=== PATIENT | male | born 1960 | race Two or more races ===

== ENCOUNTER 2021-07-09 08:23 | Emergency (ER) | payer MEDICAID ==
[~2021-07-09] VITALS: Ht 175.3 cm; Wt 90.7 kg
[~2021-07-09 08:23] MED LIST: ALB5IS NEB; ASPI81CH43 PO; BUSP5TAB51 PO; CAR125T PO; FURO1TAB33 PO; FURO40TA4 PO; GEMF-19 PO; IPR002IS NEB; LISI2.5T47 PO; METF-370 PO; POTA-220 PO; QUET1TAB11 PO; QUET50TA PO; SERT50TA19 PO; SIMV-8 PO; WARF-196 PO; [UNRECOGNIZED DRUG - CODE] PO; [UNRECOGNIZED DRUG - CODE] PO
[2021-07-09 08:32] VITALS: BP 157/107
== END 2021-07-09 09:15 | disposition home or self-care (01) ==
LOC: ER 08:23
DX: I83.93 Asymptomatic varicose veins of bilateral lower extremities (principal); I25.10 Atherosclerotic heart disease of native coronary artery without angina pectoris; I10 Essential (primary) hypertension; I25.2 Old myocardial infarction; E78.5 Hyperlipidemia, unspecified; Z90.49 Acquired absence of other specified parts of digestive tract; Z90.89 Acquired absence of other organs; Z79.82 Long term (current) use of aspirin; Z79.899 Other long term (current) drug therapy; Z79.01 Long term (current) use of anticoagulants; Z88.8 Allergy status to other drugs, medicaments and biological substances

== ENCOUNTER 2021-07-14 10:21 | Inpatient (IN) | payer MEDICAID ==
[~2021-07-14] VITALS: Ht 175.3 cm; Wt 96.0 kg
[2021-07-14] MEDS ORDERED: cefTRIAXone 1GM/50ML D5W 50 ML IV ONE (10:45)
[2021-07-14] MEDS ORDERED: metroNIDAZOLE 500MG/100ML 100 ML IV ONE (10:45)
[2021-07-14] MEDS ORDERED: ONDANSETRON HCL 4 MG/2 ML VIAL IV ONE (10:45)
[2021-07-14] MEDS ORDERED: MORPHINE SULFATE 4 MG/ML SYR/VIAL IV ONE (10:45)
[2021-07-14 11:44] LABS: Basophils # (auto) 0 10 ^3/uL (0-0.2); Basophils % (auto) 0.5 % (0.0-2.0); Eosinophils # (auto) 0 10 ^3/uL (0-0.8); Eosinophils % (auto) 0.4 % (0.0-7.0); Hematocrit 42.9 % (41.0-53.0); Hemoglobin 14.3 g/dL (13.5-17.5); Lymphocytes # (auto) 1.3 10 ^3/uL (0.4-5.4); Lymphocytes % (auto) 23.1 % (10.0-50.0); Mean Corpuscular Hemoglobin 32.3 pg (28.0-32.0); Mean Corpuscular Hgb Conc. 33.4 g/dL (32.0-36.0); Mean Corpuscular Volume 96.6 fL (80.0-100.0); Monocytes # (auto) 0.5 10 ^3/uL (0-1.3); Monocytes % (auto) 7.9 % (0.0-12.0); Neutrophils # (auto) 3.9 10 ^3/uL (1.6-8.6); Neutrophils % (auto) 68.1 % (37.0-80.0); Nucleated Red Blood Cells % 0.1 %; Red Blood Cells 4.44 10^6/uL (4.5-5.90); Red Cell Distribution Width 13.9 % (11.8-14.3); White Blood Cell 5.7 10^3/uL (4.4-10.8)
[2021-07-14 11:56] LABS: Partial Thromboplastin Time 41.6 sec (23.6-33.0)
[2021-07-14 11:57] LABS: Albumin 3.2 g/dL (3.4-5.0); Anion Gap 6 (5-15); Blood Urea Nitrogen 24 mg/dL (7-18); Calcium 8.5 mg/dL (8.5-10.1); Carbon Dioxide 23 mmol/L (21-32); Chloride 108 mmol/L (98-107); Glucose 97 mg/dL (74-106); Potassium 4.3 mmol/L (3.5-5.1); Sodium 137 mmol/L (136-145)
[2021-07-14 12:02] LABS: Alanine Aminotransferase 33 U/L (16-61); Alkaline Phosphatase 137 U/L (45-117); Aspartate Aminotransferase 55 U/L (15-37); Bilirubin, Total 2.7 mg/dL (0.2-1.0); GFR African American 69 mL/min; GFR Non-African American 57 mL/min; Total Protein 6.6 g/dL (6.4-8.2)
[2021-07-14 12:03] LABS: BUN/Creatinine Ratio 17.9
[2021-07-14 12:08] LABS: INR 7.27 (0.9-1.15)
[2021-07-14] MEDS ORDERED: phytonadione 10 MG in SODIUM CHL 0.9% 50 ML IV ONE (12:45)
[2021-07-14] MEDS ORDERED: ETOMIDATE (2MG/ML) 20ML VIAL IV ONE (16:00)
[2021-07-14] MEDS ORDERED: MIDAZOLAM DRIP 50 mg/50mL 50 ML IV SCH (16:00)
[2021-07-14] MEDS ORDERED: fentaNYL Drip 2500mCg/250mlNS 250 ML IV SCH (16:00)
[2021-07-14 16:18] LABS: Urine Bacteria FEW /hpf (None Seen); Urine Blood Negative /uL (Negative); Urine Hyaline Cast FEW /lpf (0 - 2); Urine Mucus FEW (None Seen); Urine Specific Gravity 1.026 (1.001-1.035); Urine WBC 1 /hpf (0 - 3)
[2021-07-14] MEDS ORDERED: NITROGLYCERIN 0.4 MG SL TAB SL PRN (16:30)
[2021-07-14] MEDS ORDERED: HYDROcodone-ACET 5/325MG TAB PO PRN (16:30)
[2021-07-14] MEDS ORDERED: DOCUSATE SOD 100 MG CAP PO PRN (16:30)
[2021-07-14] MEDS ORDERED: MORPHINE SULFATE INJECTION 2 MG/ML SYRG IV PRN (16:30)
[2021-07-14] MEDS ORDERED: ACETAMINOPHEN 325 MG TAB PO PRN (16:30)
[2021-07-14] MEDS ORDERED: ONDANSETRON HCL 4 MG/2 ML VIAL IV PRN (16:30)
[2021-07-14 22:00] VITALS: BP 148/99
[2021-07-14 22:20] VITALS: BP 142/99
[2021-07-15 05:00] VITALS: BP 114/70
[2021-07-15] MEDS ORDERED: LISI20TA28 PO (05:17)
[2021-07-15] MEDS ORDERED: CIPR500T4 PO (05:17)
[2021-07-15] MEDS ORDERED: POLY33504 PO (05:17)
[2021-07-15] MEDS ORDERED: FURO1TAB31 PO (05:17)
[2021-07-15] MEDS ORDERED: METR500T14 PO (05:17)
[2021-07-15] MEDS ORDERED: ONDA-144 PO (05:17)
[2021-07-15] MEDS ORDERED: PANT40TA2 PO (05:17)
[2021-07-15] MEDS ORDERED: ROSU10TA16 PO (05:17)
[2021-07-15] MEDS ORDERED: APIX5TAB PO (05:18)
[2021-07-15 08:56] VITALS: BP 125/84
[2021-07-15 10:10] LABS: Basophils # (auto) 0 10 ^3/uL (0-0.2); Basophils % (auto) 0.6 % (0.0-2.0); Eosinophils # (auto) 0.1 10 ^3/uL (0-0.8); Hematocrit 43.6 % (41.0-53.0); Hemoglobin 14.7 g/dL (13.5-17.5); Lymphocytes # (auto) 1.6 10 ^3/uL (0.4-5.4); Lymphocytes % (auto) 26.8 % (10.0-50.0); Mean Corpuscular Hemoglobin 32.7 pg (28.0-32.0); Mean Corpuscular Hgb Conc. 33.6 g/dL (32.0-36.0); Mean Corpuscular Volume 97.2 fL (80.0-100.0); Monocytes # (auto) 0.5 10 ^3/uL (0-1.3); Neutrophils # (auto) 3.7 10 ^3/uL (1.6-8.6); Neutrophils % (auto) 62.6 % (37.0-80.0); Red Blood Cells 4.48 10^6/uL (4.5-5.90); Red Cell Distribution Width 14.4 % (11.8-14.3); White Blood Cell 5.9 10^3/uL (4.4-10.8)
[2021-07-15 10:15] LABS: BUN/Creatinine Ratio 17.8; Calcium 8.5 mg/dL (8.5-10.1); Potassium 3.9 mmol/L (3.5-5.1)
[2021-07-15 10:30] LABS: INR 1.44 (0.9-1.15); Partial Thromboplastin Time 27.7 sec (23.6-33.0)
[2021-07-15] MEDS ORDERED: LACTULOSE 20Gm/30ML SOLN PO PRN (10:45)
== END 2021-07-15 19:52 | disposition home or self-care (01) | DRG 251 ==
LOC: ER 10:21 → TELE 16:21 → TELE-CENTR 20:57
PROVIDERS: ADMIT Internal Medicine; ATTEND Internal Medicine
DX: R10.9 Unspecified abdominal pain (principal); I50.9 Heart failure, unspecified; K74.60 Unspecified cirrhosis of liver; I11.0 Hypertensive heart disease with heart failure; E78.5 Hyperlipidemia, unspecified; R79.1 Abnormal coagulation profile; Z20.822 Contact with and (suspected) exposure to COVID-19; I25.10 Atherosclerotic heart disease of native coronary artery without angina pectoris; I25.2 Old myocardial infarction; Z80.0 Family history of malignant neoplasm of digestive organs; Z80.3 Family history of malignant neoplasm of breast; Z83.3 Family history of diabetes mellitus
CPT/HCPCS: 36415; 71045; 74176; 76705; 76942; 80048; 80053; 81001; 83605; 83986; 84484; 85025; 85610; 85730; 87040; 87205; 87426; 89051; 96365; 96367; 96368; 96375; G0378; J0696; J2405; J3430; J3490

== ENCOUNTER 2021-08-21 12:06 | Emergency (ER) | payer MEDICAID ==
[~2021-08-21] VITALS: Ht 175.3 cm; Wt 81.6 kg
[~2021-08-21 12:06] MED LIST changes: +APIX5TAB PO; -FURO1TAB33 PO; -LISI2.5T47 PO; +LISI20TA28 PO; +ONDA-144 PO; +PANT40TA2 PO; +POLY33504 PO; -QUET1TAB11 PO; -QUET50TA PO; +ROSU10TA16 PO; -WARF-196 PO; -[UNRECOGNIZED DRUG - CODE] PO; -[UNRECOGNIZED DRUG - CODE] PO
[2021-08-21 16:08] VITALS: BP 126/70
[2021-08-21] MEDS ORDERED: HYDROcodone-ACET 5/325MG TAB PO ONE (16:15)
[2021-08-21] MEDS ORDERED: ONDANSETRON ODT 4 MG TAB PO ONE (16:15)
== END 2021-08-21 16:50 | disposition home or self-care (01) ==
LOC: ER 12:06
DX: S16.1XXA Strain of muscle, fascia and tendon at neck level, initial encounter (principal); E78.5 Hyperlipidemia, unspecified; I10 Essential (primary) hypertension; F12.10 Cannabis abuse, uncomplicated; W18.09XA Striking against other object with subsequent fall, initial encounter; Y93.89 Activity, other specified; Y92.89 Other specified places as the place of occurrence of the external cause; Y99.8 Other external cause status
CPT/HCPCS: 72125; 99284; Q0162

== ENCOUNTER 2022-07-01 16:18 | Inpatient (IN) | payer MEDICAID ==
[~2022-07-01] VITALS: Ht 175.3 cm; Wt 96.3 kg
[2022-07-01 18:38] LABS: Basophils # (auto) 0.1 10 ^3/uL (0-0.2); Basophils % (auto) 0.7 % (0.0-2.0); Eosinophils # (auto) 0.2 10 ^3/uL (0-0.8); Eosinophils % (auto) 2.8 % (0.0-7.0); Hematocrit 43.4 % (41.0-53.0); Hemoglobin 14.9 g/dL (13.5-17.5); Lymphocytes # (auto) 1.7 10 ^3/uL (0.4-5.4); Lymphocytes % (auto) 22.5 % (10.0-50.0); Mean Corpuscular Hemoglobin 31.6 pg (28.0-32.0); Mean Corpuscular Hgb Conc. 34.2 g/dL (32.0-36.0); Mean Corpuscular Volume 92.2 fL (80.0-100.0); Monocytes # (auto) 0.4 10 ^3/uL (0-1.3); Monocytes % (auto) 5.2 % (0.0-12.0); Neutrophils # (auto) 5.3 10 ^3/uL (1.6-8.6); Neutrophils % (auto) 68.8 % (37.0-80.0); Nucleated Red Blood Cells % 0.1 %; Red Blood Cells 4.71 10^6/uL (4.5-5.90); Red Cell Distribution Width 13.5 % (11.8-14.3); White Blood Cell 7.6 10^3/uL (4.4-10.8)
[2022-07-01 18:57] LABS: Albumin 4.2 g/dL (3.4-5.0); BUN/Creatinine Ratio 15.6; Calcium 9.6 mg/dL (8.5-10.1); Potassium 4.2 mmol/L (3.5-5.1)
[2022-07-01 19:10] LABS: Bilirubin, Total 1.4 mg/dL (0.2-1.0); Total Protein 7.1 g/dL (6.4-8.2)
[2022-07-01] MEDS ORDERED: VANCOMYCIN PER PHARMACY 0 MG IV SCH (20:15)
[2022-07-01] MEDS ORDERED: cefTRIAXone 1GM/50ML D5W 50 ML IV ONE (20:15)
[2022-07-01] MEDS ORDERED: SODIUM CHLORIDE 0.9% 1,000 ML IV ONE (20:15)
[2022-07-01 20:37] LABS: Urine Bacteria FEW /hpf (None Seen); Urine Blood Negative /uL (Negative); Urine Hyaline Cast MOD /lpf (0 - 2); Urine Specific Gravity 1.017 (1.001-1.035); Urine WBC 1 /hpf (0 - 3)
[2022-07-01] MEDS ORDERED: VANCOMYCIN 1GM/250ML 250 ML IV ONE (20:45)
[2022-07-01] MEDS ORDERED: ONDANSETRON HCL 4 MG/2 ML VIAL IV PRN (23:15)
[2022-07-01] MEDS ORDERED: ACETAMINOPHEN 325 MG TAB PO PRN (23:15)
[2022-07-02] MEDS ORDERED: PANTOPRAZOLE 40 MG/10 ML VIAL INJ IV ONE (00:15)
[2022-07-02] MEDS ORDERED: DEXTROSE (50%) 50ML SYRG IV PRN (00:15)
[2022-07-02 05:54] LABS: Basophils # (auto) 0 10 ^3/uL (0-0.2); Basophils % (auto) 0.6 % (0.0-2.0); Eosinophils # (auto) 0.3 10 ^3/uL (0-0.8); Eosinophils % (auto) 3.6 % (0.0-7.0); Hematocrit 39.6 % (41.0-53.0); Hemoglobin 13.4 g/dL (13.5-17.5); Lymphocytes # (auto) 1.5 10 ^3/uL (0.4-5.4); Lymphocytes % (auto) 19.5 % (10.0-50.0); Mean Corpuscular Hemoglobin 31.1 pg (28.0-32.0); Mean Corpuscular Hgb Conc. 33.9 g/dL (32.0-36.0); Mean Corpuscular Volume 91.8 fL (80.0-100.0); Monocytes # (auto) 0.5 10 ^3/uL (0-1.3); Monocytes % (auto) 6.7 % (0.0-12.0); Neutrophils # (auto) 5.2 10 ^3/uL (1.6-8.6); Neutrophils % (auto) 69.6 % (37.0-80.0); Red Blood Cells 4.32 10^6/uL (4.5-5.90); Red Cell Distribution Width 13.5 % (11.8-14.3); White Blood Cell 7.5 10^3/uL (4.4-10.8)
[2022-07-02 06:11] LABS: Albumin 3.2 g/dL (3.4-5.0); BUN/Creatinine Ratio 16.3; Calcium 8.2 mg/dL (8.5-10.1); Potassium 3.8 mmol/L (3.5-5.1)
[2022-07-02 06:14] LABS: Bilirubin, Total 0.9 mg/dL (0.2-1.0); Total Protein 6.1 g/dL (6.4-8.2)
[2022-07-02] MEDS: IPRATROPIUM BROM 0.5 MG/2.5ML INH SOL NEB SCH ×3 (06:14→18:59)
[2022-07-02] MEDS: InsuLIN REG 1unit/0.01ml Soln (100units/ml) SC SCH ×4 (07:00→22:00)
[2022-07-02] MEDS: ACCU-CHEK COMFORT CURVE STRIP VI SCH ×4 (07:04→23:01)
[2022-07-02] MEDS: cefTRIAXone 1GM/50ML D5W 50 ML IV SCH (09:59)
[2022-07-02] MEDS ORDERED: VANCOMYCIN 1GM/250ML 250 ML IV SCH (10:00)
[2022-07-02] MEDS: PANTOPRAZOLE 40 MG/10 ML VIAL INJ IV SCH (10:09)
[2022-07-02] MEDS: CARVEDILOL 12.5 MG TAB PO SCH ×3 (10:11→10:26)
[2022-07-02] MEDS: FUROSEMIDE 40 MG TAB PO SCH (10:11)
[2022-07-02] MEDS: ASPirin 81 mg TAB PO SCH (10:12)
[2022-07-02] MEDS: APIXABAN 5 MG TAB PO SCH ×2 (10:12→21:32)
[2022-07-02] MEDS: LISINOPRIL 20 MG TAB PO SCH ×2 (10:12→10:24)
[2022-07-02] MEDS: VANCOMYCIN 1GM/250ML 250 ML IV SCH ×2 (11:34→20:12)
[2022-07-02 14:40] VITALS: BP 95/56
[2022-07-02 17:00] VITALS: BP 168/67
[2022-07-02] MEDS ORDERED: HYDR-4798 PO (21:37)
[2022-07-02 22:00] VITALS: BP 106/50
[2022-07-02] MEDS ORDERED: HYDROcodone-ACET 5/325MG TAB PO PRN (23:00)
[2022-07-03] MEDS ORDERED: AMBR10TA4 PO (02:04)
[2022-07-03] MEDS ORDERED: SILD25TA15 PO (02:07)
[2022-07-03 05:00] VITALS: BP 96/48
[2022-07-03] MEDS: IPRATROPIUM BROM 0.5 MG/2.5ML INH SOL NEB SCH ×3 (05:54→17:49)
[2022-07-03 06:18] LABS: Basophils # (auto) 0.1 10 ^3/uL (0-0.2); Basophils % (auto) 0.8 % (0.0-2.0); Eosinophils # (auto) 0.3 10 ^3/uL (0-0.8); Eosinophils % (auto) 4.3 % (0.0-7.0); Hematocrit 40.9 % (41.0-53.0); Lymphocytes # (auto) 1.9 10 ^3/uL (0.4-5.4); Lymphocytes % (auto) 26.7 % (10.0-50.0); Mean Corpuscular Hemoglobin 31.5 pg (28.0-32.0); Mean Corpuscular Hgb Conc. 34.3 g/dL (32.0-36.0); Mean Corpuscular Volume 91.9 fL (80.0-100.0); Monocytes # (auto) 0.6 10 ^3/uL (0-1.3); Monocytes % (auto) 8.3 % (0.0-12.0); Neutrophils # (auto) 4.4 10 ^3/uL (1.6-8.6); Neutrophils % (auto) 59.9 % (37.0-80.0); Red Blood Cells 4.45 10^6/uL (4.5-5.90); Red Cell Distribution Width 13.5 % (11.8-14.3); White Blood Cell 7.3 10^3/uL (4.4-10.8)
[2022-07-03] MEDS: ACCU-CHEK COMFORT CURVE STRIP VI SCH ×4 (06:41→21:31)
[2022-07-03] MEDS: InsuLIN REG 1unit/0.01ml Soln (100units/ml) SC SCH ×4 (06:42→22:00)
[2022-07-03] MEDS: VANCOMYCIN 1GM/250ML 250 ML IV SCH (08:14)
[2022-07-03 09:00] VITALS: BP 112/59
[2022-07-03] MEDS: PANTOPRAZOLE 40 MG/10 ML VIAL INJ IV SCH (09:58)
[2022-07-03] MEDS: ASPirin 81 mg TAB PO SCH (09:58)
[2022-07-03] MEDS: FUROSEMIDE 40 MG TAB PO SCH (10:03)
[2022-07-03] MEDS: APIXABAN 5 MG TAB PO SCH ×2 (10:05→21:30)
[2022-07-03] MEDS: CARVEDILOL 12.5 MG TAB PO SCH ×4 (10:05→21:31)
[2022-07-03] MEDS: cefTRIAXone 1GM/50ML D5W 50 ML IV SCH (10:07)
[2022-07-03 12:31] VITALS: BP 125/68
[2022-07-03 17:00] VITALS: BP 130/82
[2022-07-03 22:00] VITALS: BP 116/71
[2022-07-03] MEDS ORDERED: DOXYCYCLINE 100MG/250ML 250 ML IV ONE (22:15)
[2022-07-04 05:00] VITALS: BP 118/74
[2022-07-04] MEDS: ACCU-CHEK COMFORT CURVE STRIP VI SCH ×2 (05:48→12:12)
[2022-07-04] MEDS: InsuLIN REG 1unit/0.01ml Soln (100units/ml) SC SCH ×2 (05:48→11:30)
[2022-07-04] MEDS: IPRATROPIUM BROM 0.5 MG/2.5ML INH SOL NEB SCH ×2 (06:42→11:17)
[2022-07-04 08:51] VITALS: BP 148/97
[2022-07-04] MEDS: cefTRIAXone 1GM/50ML D5W 50 ML IV SCH (09:06)
[2022-07-04] MEDS ORDERED: DOXYCYCLINE 100MG/250ML 250 ML IV SCH (10:00)
[2022-07-04] MEDS ORDERED: DOXY-332 PO (10:17)
[2022-07-04] MEDS: PANTOPRAZOLE 40 MG/10 ML VIAL INJ IV SCH (10:44)
[2022-07-04] MEDS: ASPirin 81 mg TAB PO SCH (10:44)
[2022-07-04] MEDS: FUROSEMIDE 40 MG TAB PO SCH (10:46)
[2022-07-04] MEDS: CARVEDILOL 12.5 MG TAB PO SCH (10:46)
[2022-07-04] MEDS: LISINOPRIL 20 MG TAB PO SCH (10:47)
[2022-07-04] MEDS: APIXABAN 5 MG TAB PO SCH (10:48)
[2022-07-04 13:00] VITALS: BP 100/52
[2022-07-04 14:41] VITALS: BP 100/52
== END 2022-07-04 15:55 | disposition home or self-care (01) | DRG 383 ==
LOC: ER 16:18 → OVERFLOW 23:22 → CENTRAL 07-02 13:54
PROVIDERS: ADMIT Nurse Practitioner Family; ATTEND Internal Medicine Pulmonary Disease
DX: L03.115 Cellulitis of right lower limb (principal); E78.5 Hyperlipidemia, unspecified; I12.9 Hypertensive chronic kidney disease with stage 1 through stage 4 chronic kidney disease, or unspecified chronic kidney disease; N18.31 Chronic kidney disease, stage 3a; Z20.822 Contact with and (suspected) exposure to COVID-19; R73.9 Hyperglycemia, unspecified; I25.10 Atherosclerotic heart disease of native coronary artery without angina pectoris; J44.9 Chronic obstructive pulmonary disease, unspecified; Z79.01 Long term (current) use of anticoagulants; Z79.82 Long term (current) use of aspirin; Z79.84 Long term (current) use of oral hypoglycemic drugs; Z79.899 Other long term (current) drug therapy; Z80.3 Family history of malignant neoplasm of breast; Z83.3 Family history of diabetes mellitus; Z86.718 Personal history of other venous thrombosis and embolism; I25.2 Old myocardial infarction
CPT/HCPCS: 36415; 73700; 80053; 80202; 81001; 82565; 82962; 83036; 84484; 85025; 93971; 94640; 96365; 96368; C9113; G0378; J0696; J3490

== ENCOUNTER 2022-10-24 11:22 | Inpatient (IN) | payer MEDICAID ==
[~2022-10-24] VITALS: Ht 175.3 cm; Wt 92.1 kg
[~2022-10-24 11:22] MED LIST changes: +AMBR10TA4 PO; +DOXY-332 PO; +HYDR-4798 PO; +SILD25TA15 PO
[2022-10-24] MEDS ORDERED: VANCOMYCIN 1GM/250ML 250 ML IV ONE (15:30)
[2022-10-24 15:48] LABS: Basophils # (auto) 0 10 ^3/uL (0-0.2); Basophils % (auto) 0.4 % (0.0-2.0); Eosinophils # (auto) 0 10 ^3/uL (0-0.8); Eosinophils % (auto) 0.3 % (0.0-7.0); Hematocrit 45.1 % (41.0-53.0); Hemoglobin 15.4 g/dL (13.5-17.5); Lymphocytes # (auto) 1.4 10 ^3/uL (0.4-5.4); Lymphocytes % (auto) 15.6 % (10.0-50.0); Mean Corpuscular Hemoglobin 31.2 pg (28.0-32.0); Mean Corpuscular Hgb Conc. 34.2 g/dL (32.0-36.0); Mean Corpuscular Volume 91.3 fL (80.0-100.0); Monocytes # (auto) 0.5 10 ^3/uL (0-1.3); Monocytes % (auto) 6.1 % (0.0-12.0); Neutrophils # (auto) 6.9 10 ^3/uL (1.6-8.6); Neutrophils % (auto) 77.6 % (37.0-80.0); Red Blood Cells 4.94 10^6/uL (4.5-5.90); Red Cell Distribution Width 12.8 % (11.8-14.3); White Blood Cell 8.8 10^3/uL (4.4-10.8)
[2022-10-24 16:05] LABS: Albumin 4.1 g/dL (3.4-5.0); Calcium 8.6 mg/dL (8.5-10.1); Potassium 3.4 mmol/L (3.5-5.1)
[2022-10-24 16:08] LABS: BUN/Creatinine Ratio 14.6; Bilirubin, Total 1.8 mg/dL (0.2-1.0); Total Protein 7.4 g/dL (6.4-8.2)
[2022-10-24] MEDS ORDERED: DEXTROSE (50%) 50ML SYRG IV PRN (17:15)
[2022-10-24] MEDS ORDERED: POTASSIUM CHL 20 Meq TABLET PO ONE (17:15)
[2022-10-24] MEDS ORDERED: ACETAMINOPHEN 325 MG TAB PO PRN (17:15)
[2022-10-24] MEDS ORDERED: VANCOMYCIN PER PHARMACY 0 MG IV SCH (17:15)
[2022-10-24] MEDS ORDERED: ALBUTEROL MEDNEB 2.5 mg/3ml NEB NEB PRN (17:30)
[2022-10-24 17:49] VITALS: BP 107/59
[2022-10-24] MEDS: ACCU-CHEK COMFORT CURVE STRIP VI SCH (23:50)
[2022-10-24] MEDS: InsuLIN REG 1unit/0.01ml Soln (100units/ml) SC SCH (23:51)
[2022-10-25] MEDS: APIXABAN 5 MG TAB PO SCH ×3 (00:22→21:08)
[2022-10-25] MEDS: SILDENAFIL CITRATE 20 MG TAB PO SCH ×4 (00:22→21:07)
[2022-10-25 06:44] LABS: Albumin 3.3 g/dL (3.4-5.0); Basophils # (auto) 0 10 ^3/uL (0-0.2); Basophils % (auto) 0.5 % (0.0-2.0); Calcium 8.4 mg/dL (8.5-10.1); Eosinophils # (auto) 0.1 10 ^3/uL (0-0.8); Eosinophils % (auto) 1.9 % (0.0-7.0); Hematocrit 43.9 % (41.0-53.0); Lymphocytes # (auto) 1.6 10 ^3/uL (0.4-5.4); Lymphocytes % (auto) 26.7 % (10.0-50.0); Mean Corpuscular Hemoglobin 31.4 pg (28.0-32.0); Mean Corpuscular Hgb Conc. 34.2 g/dL (32.0-36.0); Mean Corpuscular Volume 91.8 fL (80.0-100.0); Monocytes # (auto) 0.7 10 ^3/uL (0-1.3); Monocytes % (auto) 11.9 % (0.0-12.0); Neutrophils # (auto) 3.6 10 ^3/uL (1.6-8.6); Nucleated Red Blood Cells % 0.1 %; Potassium 3.8 mmol/L (3.5-5.1); Red Blood Cells 4.78 10^6/uL (4.5-5.90); Red Cell Distribution Width 13.2 % (11.8-14.3); White Blood Cell 6.1 10^3/uL (4.4-10.8)
[2022-10-25] MEDS: InsuLIN REG 1unit/0.01ml Soln (100units/ml) SC SCH ×4 (06:47→21:05)
[2022-10-25] MEDS: ACCU-CHEK COMFORT CURVE STRIP VI SCH ×4 (06:47→21:09)
[2022-10-25 06:48] LABS: BUN/Creatinine Ratio 16.4; Total Protein 6.5 g/dL (6.4-8.2)
[2022-10-25 08:00] VITALS: BP 142/80
[2022-10-25] MEDS: VANCOMYCIN 1GM/250ML 250 ML IV SCH (09:23)
[2022-10-25] MEDS ORDERED: Ambrisentan 10 MG PO SCH (10:00)
[2022-10-25] MEDS: ASPirin 81 mg TAB PO SCH (10:28)
[2022-10-25] MEDS: PANTOPRAZOLE 40 MG TAB PO SCH (10:28)
[2022-10-25] MEDS: ATORVASTATIN 20 MG TAB PO SCH (10:28)
[2022-10-25] MEDS: SERTRALINE HCL 50 MG TAB PO SCH (10:29)
[2022-10-25 11:40] VITALS: BP 142/80
[2022-10-25] MEDS ORDERED: cefTRIAXone 1GM/50ML D5W 50 ML IV ONE (15:45)
[2022-10-25 16:00] VITALS: BP 147/74
[2022-10-25] MEDS: FUROSEMIDE 20 MG/2 ML VIAL IV SCH (17:20)
[2022-10-25] MEDS: TREPROSTINIL PO SCH ×2 (18:30→22:08)
[2022-10-25 20:00] VITALS: BP 120/66
[2022-10-25] MEDS: POTASSIUM CHL 10 Meq TABLET PO SCH (21:08)
[2022-10-25 22:00] VITALS: BP 120/66
[2022-10-25] MEDS ORDERED: PATIENTS OWN MEDICATION PO SCH (22:00)
[2022-10-26] MEDS: TREPROSTINIL PO SCH ×4 (01:13→15:09)
[2022-10-26 05:00] VITALS: BP 107/54
[2022-10-26] MEDS: FUROSEMIDE 20 MG/2 ML VIAL IV SCH (06:00)
[2022-10-26] MEDS: SILDENAFIL CITRATE 20 MG TAB PO SCH ×2 (06:00→16:02)
[2022-10-26] MEDS: InsuLIN REG 1unit/0.01ml Soln (100units/ml) SC SCH ×2 (06:29→11:30)
[2022-10-26] MEDS: ACCU-CHEK COMFORT CURVE STRIP VI SCH ×2 (06:30→12:03)
[2022-10-26 08:00] VITALS: BP 111/61
[2022-10-26] MEDS ORDERED: cefTRIAXone 1GM/50ML D5W 50 ML IV SCH (09:00)
[2022-10-26 09:11] VITALS: BP 111/61
[2022-10-26] MEDS: POTASSIUM CHL 10 Meq TABLET PO SCH (09:28)
[2022-10-26] MEDS: SERTRALINE HCL 50 MG TAB PO SCH (09:28)
[2022-10-26] MEDS: APIXABAN 5 MG TAB PO SCH (09:29)
[2022-10-26] MEDS: ATORVASTATIN 20 MG TAB PO SCH (09:29)
[2022-10-26] MEDS: ASPirin 81 mg TAB PO SCH (09:30)
[2022-10-26] MEDS: PANTOPRAZOLE 40 MG TAB PO SCH (09:32)
[2022-10-26] MEDS ORDERED: AMBRISENTAN 10 MG PO SCH (10:00)
[2022-10-26 10:33] LABS: Basophils # (auto) 0 10 ^3/uL (0-0.2); Basophils % (auto) 0.6 % (0.0-2.0); Eosinophils # (auto) 0.2 10 ^3/uL (0-0.8); Eosinophils % (auto) 3.1 % (0.0-7.0); Hemoglobin 15.5 g/dL (13.5-17.5); Lymphocytes # (auto) 1.7 10 ^3/uL (0.4-5.4); Lymphocytes % (auto) 25.9 % (10.0-50.0); Mean Corpuscular Hemoglobin 31.1 pg (28.0-32.0); Mean Corpuscular Hgb Conc. 33.8 g/dL (32.0-36.0); Mean Corpuscular Volume 92.1 fL (80.0-100.0); Monocytes # (auto) 0.6 10 ^3/uL (0-1.3); Monocytes % (auto) 9.4 % (0.0-12.0); Neutrophils # (auto) 3.9 10 ^3/uL (1.6-8.6); Nucleated Red Blood Cells % 0.2 %; Red Blood Cells 4.99 10^6/uL (4.5-5.90); Red Cell Distribution Width 12.9 % (11.8-14.3); White Blood Cell 6.5 10^3/uL (4.4-10.8)
[2022-10-26 10:53] LABS: Albumin 3.5 g/dL (3.4-5.0); BUN/Creatinine Ratio 17.6; Calcium 8.4 mg/dL (8.5-10.1); Potassium 4.2 mmol/L (3.5-5.1)
[2022-10-26 10:56] LABS: Bilirubin, Total 0.8 mg/dL (0.2-1.0); Total Protein 6.5 g/dL (6.4-8.2)
[2022-10-26 11:20] LABS: Hepatitis A Ab IgM Negative; Hepatitis B Core IgM Negative; Hepatitis C Antibody Negative (Negative)
[2022-10-26] MEDS ORDERED: CLIN300C8 PO (12:23)
[2022-10-26 12:55] VITALS: BP 97/55
[2022-10-26 14:32] VITALS: BP 97/55
[2022-10-26] MEDS: VANCOMYCIN 1GM/250ML 250 ML IV SCH ×2 (15:00)
== END 2022-10-26 15:45 | disposition home or self-care (01) | DRG 383 ==
LOC: ER 11:22 → OVERFLOW 17:08 → EAST 10-25 10:49
PROVIDERS: ADMIT Nurse Practitioner Family; ATTEND Hospitalist
DX: L03.116 Cellulitis of left lower limb (principal); I82.432 Acute embolism and thrombosis of left popliteal vein; I27.20 Pulmonary hypertension, unspecified; I50.9 Heart failure, unspecified; I11.0 Hypertensive heart disease with heart failure; E78.5 Hyperlipidemia, unspecified; I25.10 Atherosclerotic heart disease of native coronary artery without angina pectoris; Z20.822 Contact with and (suspected) exposure to COVID-19; I82.503 Chronic embolism and thrombosis of unspecified deep veins of lower extremity, bilateral; K76.9 Liver disease, unspecified; E66.9 Obesity, unspecified; F31.9 Bipolar disorder, unspecified; Z79.01 Long term (current) use of anticoagulants; Z80.3 Family history of malignant neoplasm of breast; Z83.3 Family history of diabetes mellitus; Z68.30 Body mass index [BMI] 30.0-30.9, adult
CPT/HCPCS: 36415; 80053; 80074; 80202; 82962; 83036; 85025; 87426; 93306; 93971; 96365; G0378; J0696

== ENCOUNTER 2023-03-17 10:33 | Emergency (ER) | payer MEDICAID ==
[~2023-03-17] VITALS: Ht 175.3 cm; Wt 91.6 kg
[~2023-03-17 10:33] MED LIST changes: +CLIN300C70 PO; -DOXY-332 PO; -GEMF-19 PO; +GEMF-66 PO; -LISI20TA28 PO; +LISI20TA56 PO; +SERT-206 PO; -SERT50TA19 PO; -SIMV-8 PO; +SIMV20TA20 PO
[2023-03-17 12:23] LABS: Calcium 8.6 mg/dL (8.5-10.1)
[2023-03-17 12:24] LABS: Basophils # (auto) 0 10 ^3/uL (0-0.2); Basophils % (auto) 0.3 % (0.0-2.0); Eosinophils # (auto) 0.1 10 ^3/uL (0-0.8); Eosinophils % (auto) 1.8 % (0.0-7.0); Hematocrit 46.6 % (41.0-53.0); Hemoglobin 16.1 g/dL (13.5-17.5); Lymphocytes # (auto) 1.8 10 ^3/uL (0.4-5.4); Lymphocytes % (auto) 27.5 % (10.0-50.0); Mean Corpuscular Hemoglobin 31.2 pg (28.0-32.0); Mean Corpuscular Hgb Conc. 34.5 g/dL (32.0-36.0); Mean Corpuscular Volume 90.3 fL (80.0-100.0); Monocytes # (auto) 0.5 10 ^3/uL (0-1.3); Monocytes % (auto) 7.3 % (0.0-12.0); Neutrophils # (auto) 4.2 10 ^3/uL (1.6-8.6); Neutrophils % (auto) 63.1 % (37.0-80.0); Nucleated Red Blood Cells % 0.1 %; Red Blood Cells 5.16 10^6/uL (4.5-5.90); Red Cell Distribution Width 13.5 % (11.8-14.3); White Blood Cell 6.6 10^3/uL (4.4-10.8)
[2023-03-17 12:29] LABS: INR 1.07 (0.9-1.15); Partial Thromboplastin Time 30.2 SEC (24.5-34.5)
[2023-03-17 12:34] LABS: Albumin 3.8 g/dL (3.4-5.0); BUN/Creatinine Ratio 15.6 (10.0-20.0); Bilirubin, Total 1.5 mg/dL (0.2-1.0); Total Protein 6.6 g/dL (6.4-8.2)
[2023-03-17 13:50] VITALS: BP 115/62
== END 2023-03-17 13:53 | disposition home or self-care (01) ==
LOC: ER 10:33
DX: R51.9 Headache, unspecified (principal); M54.2 Cervicalgia; M25.551 Pain in right hip; M25.562 Pain in left knee; I13.0 Hypertensive heart and chronic kidney disease with heart failure and stage 1 through stage 4 chronic kidney disease, or unspecified chronic kidney disease; N18.9 Chronic kidney disease, unspecified; I50.9 Heart failure, unspecified; F41.9 Anxiety disorder, unspecified; I25.10 Atherosclerotic heart disease of native coronary artery without angina pectoris; F32.9 Major depressive disorder, single episode, unspecified; E78.5 Hyperlipidemia, unspecified; I25.2 Old myocardial infarction; Z86.718 Personal history of other venous thrombosis and embolism; Z88.7 Allergy status to serum and vaccine; W10.8XXA Fall (on) (from) other stairs and steps, initial encounter; Y93.89 Activity, other specified; Y92.098 Other place in other non-institutional residence as the place of occurrence of the external cause; Y99.8 Other external cause status
CPT/HCPCS: 36415; 70450; 72125; 73562; 74176; 80053; 83880; 84484; 85025; 85610; 85730

== ENCOUNTER 2023-05-23 06:19 | Inpatient (IN) | payer MEDICAID ==
[~2023-05-23] VITALS: Ht 175.3 cm; Wt 94.1 kg
[2023-05-23 07:56] VITALS: O2SAT 98
[2023-05-23 08:36] LABS: Basophils # (auto) 0 10 ^3/uL (0-0.2); Basophils % (auto) 0.3 % (0.0-2.0); Eosinophils # (auto) 0.1 10 ^3/uL (0-0.8); Eosinophils % (auto) 0.4 % (0.0-7.0); Hematocrit 50.6 % (41.0-53.0); Lymphocytes # (auto) 1.8 10 ^3/uL (0.4-5.4); Mean Corpuscular Hgb Conc. 33.6 g/dL (32.0-36.0); Mean Corpuscular Volume 92.1 fL (80.0-100.0); Monocytes # (auto) 0.6 10 ^3/uL (0-1.3); Monocytes % (auto) 5.2 % (0.0-12.0); Neutrophils # (auto) 10.1 10 ^3/uL (1.6-8.6); Neutrophils % (auto) 80.1 % (37.0-80.0); Red Blood Cells 5.49 10^6/uL (4.5-5.90); Red Cell Distribution Width 13.8 % (11.8-14.3); White Blood Cell 12.6 10^3/uL (4.4-10.8)
[2023-05-23 08:49] LABS: INR 1.01 (0.9-1.15); Prothrombin Time 10.6 sec (9.3-11.8)
[2023-05-23 08:50] LABS: Alanine Aminotransferase 22 U/L (7-40); Albumin 4.8 g/dL (3.2-4.8); Alkaline Phosphatase 46 U/L (46-116); Aspartate Aminotransferase 17 U/L (13-40); BUN/Creatinine Ratio 15.3 (10.0-20.0); Bilirubin, Total 1.7 mg/dL (0.2-1.0); Blood Urea Nitrogen 18 mg/dL (9-23); Calcium 9.6 mg/dL (8.5-10.1); Chloride 106 mmol/L (98-107); Glucose 97 mg/dL (74-106); Potassium 3.5 mmol/L (3.5-5.1); Sodium 140 mmol/L (136-145); Total Protein 7.5 g/dL (5.7-8.2)
[2023-05-23] MEDS ORDERED: APIXABAN 5 MG TAB PO SCH ×2 (10:00→22:00)
[2023-05-23] MEDS ORDERED: DOCUSATE SOD 100 MG CAP PO PRN (12:30)
[2023-05-23] MEDS ORDERED: ONDANSETRON HCL 4 MG/2 ML VIAL IV PRN (12:30)
[2023-05-23] MEDS ORDERED: MORPHINE SULFATE INJ 2 MG/ml SYRG IV PRN (12:30)
[2023-05-23] MEDS: SILDENAFIL CITRATE 20 MG TAB PO SCH ×2 (14:43→22:40)
[2023-05-23 16:41] VITALS: PULSE 95; RESP 19; O2SAT 94
[2023-05-23] MEDS ORDERED: ACETAMINOPHEN 325 MG TAB PO ONE (17:00)
[2023-05-23 19:30] VITALS: PULSE 84; RESP 20; O2SAT 92
[2023-05-23] MEDS: SODIUM CHLORIDE 0.9% 1,000 ML IV SCH ×2 (19:55→20:50)
[2023-05-23 20:17] VITALS: BP 109/50; PULSE 95; RESP 19; TEMP 99.8; O2SAT 94
[2023-05-23] MEDS: GEMFIBROZIL 600 MG TAB PO SCH ×2 (22:40→22:53)
[2023-05-23] MEDS: ENOXAPARIN SOD 100 MG/1 ML SYRINGE SC SCH (22:40)
[2023-05-23] MEDS: ATORVASTATIN 20 MG TAB PO SCH (22:41)
[2023-05-23] MEDS: CARVEDILOL 12.5 MG TAB PO SCH (22:52)
[2023-05-24] MEDS: SODIUM CHLORIDE 0.9% 1,000 ML IV SCH ×3 (05:16→22:28)
[2023-05-24] MEDS: SILDENAFIL CITRATE 20 MG TAB PO SCH ×3 (07:01→21:45)
[2023-05-24 08:32] LABS: Basophils # (auto) 0 10 ^3/uL (0-0.2); Basophils % (auto) 0.2 % (0.0-2.0); Eosinophils # (auto) 0 10 ^3/uL (0-0.8); Eosinophils % (auto) 0.1 % (0.0-7.0); Hemoglobin 14.5 g/dL (13.5-17.5); Lymphocytes # (auto) 1.3 10 ^3/uL (0.4-5.4); Lymphocytes % (auto) 15.9 % (10.0-50.0); Mean Corpuscular Hgb Conc. 33.8 g/dL (32.0-36.0); Mean Corpuscular Volume 91.6 fL (80.0-100.0); Monocytes # (auto) 0.5 10 ^3/uL (0-1.3); Monocytes % (auto) 6.3 % (0.0-12.0); Neutrophils # (auto) 6.1 10 ^3/uL (1.6-8.6); Neutrophils % (auto) 77.5 % (37.0-80.0); Red Blood Cells 4.69 10^6/uL (4.5-5.90); Red Cell Distribution Width 13.6 % (11.8-14.3); White Blood Cell 7.9 10^3/uL (4.4-10.8)
[2023-05-24 08:57] LABS: Alanine Aminotransferase 32 U/L (7-40); Albumin 3.7 g/dL (3.2-4.8); Alkaline Phosphatase 42 U/L (46-116); Aspartate Aminotransferase 36 U/L (13-40); BUN/Creatinine Ratio 12.5 (10.0-20.0); Bilirubin, Total 1.9 mg/dL (0.2-1.0); Blood Urea Nitrogen 15 mg/dL (9-23); Calcium 8.2 mg/dL (8.5-10.1); Chloride 108 mmol/L (98-107); Glucose 116 mg/dL (74-106); Potassium 3.8 mmol/L (3.5-5.1); Sodium 137 mmol/L (136-145); Total Protein 5.9 g/dL (5.7-8.2)
[2023-05-24] MEDS: PANTOPRAZOLE 40 MG TAB PO SCH (10:00)
[2023-05-24] MEDS: LISINOPRIL 20 MG TAB PO SCH (10:00)
[2023-05-24] MEDS: SERTRALINE HCL 50 MG TAB PO SCH (10:00)
[2023-05-24] MEDS ORDERED: PATIENTS OWN MEDICATION (Simvastatin 1 TAB) PO SCH (10:00)
[2023-05-24] MEDS: Ambrisentan 10 MG PO SCH (10:00)
[2023-05-24] MEDS: CARVEDILOL 12.5 MG TAB PO SCH ×2 (10:00→21:37)
[2023-05-24] MEDS: GEMFIBROZIL 600 MG TAB PO SCH ×2 (10:00→21:37)
[2023-05-24] MEDS: ASPirin 81 mg TAB PO SCH (10:01)
[2023-05-24] MEDS: FUROSEMIDE 40 MG TAB PO SCH (10:03)
[2023-05-24] MEDS: POTASSIUM CHL 20 Meq TABLET PO SCH (10:04)
[2023-05-24] MEDS: ENOXAPARIN SOD 100 MG/1 ML SYRINGE SC SCH ×2 (10:05→21:36)
[2023-05-24 11:58] LABS: Anion Gap 8.1 (5-15); Carbon Dioxide 20.9 mmol/L (20-30)
[2023-05-24 13:00] VITALS: BP 116/59; PULSE 71; RESP 16; TEMP 98.8; O2SAT 90
[2023-05-24 14:00] VITALS: PULSE 60; RESP 17; O2SAT 92
[2023-05-24] MEDS ORDERED: PATIENTS OWN MEDICATION PO SCH ×2 (14:00)
[2023-05-24 17:00] VITALS: BP 95/41; PULSE 60; RESP 17; TEMP 98.2; O2SAT 92
[2023-05-24] MEDS: TREPROSTINIL 32 MCG IN SCH ×2 (18:00→21:40)
[2023-05-24 20:00] VITALS: PULSE 60; RESP 18
[2023-05-24] MEDS: ATORVASTATIN 20 MG TAB PO SCH (21:37)
[2023-05-24 22:00] VITALS: BP 116/58; PULSE 67; RESP 22; TEMP 98.5; O2SAT 96
[2023-05-24 22:20] VITALS: O2SAT 96
[2023-05-25] MEDS: TREPROSTINIL 32 MCG IN SCH (02:00)
[2023-05-25 05:00] VITALS: BP 91/43; PULSE 58; RESP 17; TEMP 98.2; O2SAT 92
[2023-05-25] MEDS: SILDENAFIL CITRATE 20 MG TAB PO SCH ×3 (05:34→22:02)
[2023-05-25 06:50] VITALS: O2SAT 94
[2023-05-25 08:00] VITALS: BP 97/49; PULSE 55; RESP 22; TEMP 97.7; O2SAT 92
[2023-05-25] MEDS: LISINOPRIL 20 MG TAB PO SCH (10:00)
[2023-05-25] MEDS: FUROSEMIDE 40 MG TAB PO SCH (10:00)
[2023-05-25] MEDS ORDERED: PATIENTS OWN MEDICATION PO SCH (10:00)
[2023-05-25] MEDS: CARVEDILOL 12.5 MG TAB PO SCH ×2 (10:00→22:00)
[2023-05-25] MEDS: SODIUM CHLORIDE 0.9% 1,000 ML IV SCH ×3 (10:21→22:50)
[2023-05-25] MEDS: Ambrisentan 10 MG PO SCH (10:22)
[2023-05-25] MEDS: PANTOPRAZOLE 40 MG TAB PO SCH (10:36)
[2023-05-25] MEDS: SERTRALINE HCL 50 MG TAB PO SCH (10:36)
[2023-05-25] MEDS: GEMFIBROZIL 600 MG TAB PO SCH ×2 (10:36→21:49)
[2023-05-25] MEDS: ASPirin 81 mg TAB PO SCH (10:36)
[2023-05-25] MEDS: POTASSIUM CHL 20 Meq TABLET PO SCH (10:36)
[2023-05-25] MEDS: ENOXAPARIN SOD 100 MG/1 ML SYRINGE SC SCH ×2 (10:37→21:55)
[2023-05-25 12:00] VITALS: BP 124/70; PULSE 57; RESP 20; TEMP 97.3; O2SAT 94
[2023-05-25 12:35] LABS: Urine Bacteria NONE SEEN /hpf (None Seen); Urine Blood Negative /uL (Negative); Urine Clarity Clear (Clear); Urine Color Yellow (Yellow); Urine Protein, UAD Negative (Negative); Urine Specific Gravity 1.015 (1.001-1.035); Urine Urobilinogen Normal (Negative); Urine WBC <1 /hpf (0 - 3); Urine pH 6.5 (5.0-8.0)
[2023-05-25] MEDS ORDERED: FUROSEMIDE 20 MG/2 ML VIAL IV ONE (15:15)
[2023-05-25] MEDS: TREPROSTINIL IN SCH ×3 (15:43→22:00)
[2023-05-25 16:00] VITALS: BP 97/44; PULSE 62; RESP 20; TEMP 98; O2SAT 95
[2023-05-25] MEDS ORDERED: IOHEXOL 350 MG/ML 100ML IJ ONE (16:01)
[2023-05-25] MEDS: ATORVASTATIN 20 MG TAB PO SCH (21:49)
[2023-05-25 22:08] VITALS: BP 93/47; PULSE 55; RESP 17; TEMP 97.9; O2SAT 94
[2023-05-25] MEDS ORDERED: ACETAMINOPHEN 325 MG TAB PO PRN (23:45)
[2023-05-26] MEDS: SODIUM CHLORIDE 0.9% 1,000 ML IV SCH (00:30)
[2023-05-26] MEDS: TREPROSTINIL IN SCH ×3 (02:00→08:46)
[2023-05-26 05:13] VITALS: BP 92/55; PULSE 60; RESP 17; TEMP 99; O2SAT 95
[2023-05-26] MEDS: SILDENAFIL CITRATE 20 MG TAB PO SCH (05:25)
[2023-05-26 08:00] VITALS: BP 108/53; PULSE 69; RESP 20; TEMP 98.6; O2SAT 98
[2023-05-26] MEDS: ASPirin 81 mg TAB PO SCH (08:42)
[2023-05-26] MEDS: PANTOPRAZOLE 40 MG TAB PO SCH (08:43)
[2023-05-26] MEDS: GEMFIBROZIL 600 MG TAB PO SCH (08:43)
[2023-05-26] MEDS: POTASSIUM CHL 20 Meq TABLET PO SCH (08:43)
[2023-05-26] MEDS: CARVEDILOL 12.5 MG TAB PO SCH (08:44)
[2023-05-26] MEDS: FUROSEMIDE 40 MG TAB PO SCH (08:44)
[2023-05-26] MEDS: ENOXAPARIN SOD 100 MG/1 ML SYRINGE SC SCH (08:45)
[2023-05-26] MEDS: SERTRALINE HCL 50 MG TAB PO SCH (08:45)
[2023-05-26] MEDS ORDERED: LISINOPRIL 20 MG TAB PO SCH (10:00)
[2023-05-26 11:03] VITALS: BP 108/53; PULSE 69; RESP 20; TEMP 98.6; O2SAT 98
[2023-05-26 13:00] VITALS: BP 136/65; PULSE 68; RESP 20; TEMP 98.6; O2SAT 98
== END 2023-05-26 12:10 | disposition home or self-care (01) | DRG 197 ==
LOC: ER 06:19 → OVERFLOW 12:29 → WEST WING 05-24 07:31
PROVIDERS: ADMIT Nurse Practitioner Family; ATTEND Family Medicine
DX: I82.401 Acute embolism and thrombosis of unspecified deep veins of right lower extremity (principal); I27.20 Pulmonary hypertension, unspecified; I50.9 Heart failure, unspecified; I11.0 Hypertensive heart disease with heart failure; I82.503 Chronic embolism and thrombosis of unspecified deep veins of lower extremity, bilateral; D72.829 Elevated white blood cell count, unspecified; E78.5 Hyperlipidemia, unspecified; F32.A Depression, unspecified; F41.9 Anxiety disorder, unspecified; E66.9 Obesity, unspecified; I25.10 Atherosclerotic heart disease of native coronary artery without angina pectoris; E78.00 Pure hypercholesterolemia, unspecified; R73.03 Prediabetes; Z79.01 Long term (current) use of anticoagulants; Z80.3 Family history of malignant neoplasm of breast; Z83.3 Family history of diabetes mellitus
CPT/HCPCS: 36415; 71045; 71275; 80053; 81001; 83605; 85025; 85610; 93971; G0378; J2405

== ENCOUNTER 2023-08-15 08:55 | Emergency (ER) | payer MEDICAID ==
[~2023-08-15] VITALS: Ht 175.3 cm; Wt 86.4 kg
[2023-08-15 12:33] VITALS: BP 130/77; PULSE 99; RESP 17; TEMP 99.6; O2SAT 95
== END 2023-08-15 12:53 | disposition home or self-care (01) ==
LOC: ER 08:55
DX: I82.492 Acute embolism and thrombosis of other specified deep vein of left lower extremity (principal); I13.0 Hypertensive heart and chronic kidney disease with heart failure and stage 1 through stage 4 chronic kidney disease, or unspecified chronic kidney disease; N18.9 Chronic kidney disease, unspecified; I50.9 Heart failure, unspecified; E78.5 Hyperlipidemia, unspecified
CPT/HCPCS: 93970

== ENCOUNTER 2023-09-10 21:09 | Emergency (ER) | payer MEDICAID ==
[~2023-09-10] VITALS: Ht 175.3 cm; Wt 90.9 kg
[2023-09-10 22:23] LABS: Basophils # (auto) 0 10 ^3/uL (0-0.2); Basophils % (auto) 0.3 % (0.0-2.0); Eosinophils # (auto) 0.1 10 ^3/uL (0-0.8); Eosinophils % (auto) 0.8 % (0.0-7.0); Hematocrit 44.1 % (41.0-53.0); Hemoglobin 14.8 g/dL (13.5-17.5); Lymphocytes # (auto) 1.7 10 ^3/uL (0.4-5.4); Lymphocytes % (auto) 18.1 % (10.0-50.0); Mean Corpuscular Hemoglobin 31.3 pg (28.0-32.0); Mean Corpuscular Hgb Conc. 33.6 g/dL (32.0-36.0); Mean Corpuscular Volume 93.1 fL (80.0-100.0); Monocytes # (auto) 0.9 10 ^3/uL (0-1.3); Monocytes % (auto) 10.3 % (0.0-12.0); Neutrophils # (auto) 6.4 10 ^3/uL (1.6-8.6); Neutrophils % (auto) 70.5 % (37.0-80.0); Red Blood Cells 4.74 10^6/uL (4.5-5.90); White Blood Cell 9.1 10^3/uL (4.4-10.8)
[2023-09-10 22:41] LABS: INR 1.06 (0.9-1.15); Partial Thromboplastin Time 30.9 SEC (24.5-34.5); Prothrombin Time 11.1 sec (9.3-11.8)
[2023-09-10 22:47] LABS: Alanine Aminotransferase 22 U/L (7-40); Albumin 4.5 g/dL (3.2-4.8); Alkaline Phosphatase 51 U/L (46-116); Anion Gap 6 (5-15); Aspartate Aminotransferase 26 U/L (13-40); BUN/Creatinine Ratio 10.3 (10.0-20.0); Blood Urea Nitrogen 16 mg/dL (9-23); Calcium 9.5 mg/dL (8.7-10.4); Carbon Dioxide 28 mmol/L (20-30); Chloride 103 mmol/L (98-107); Glucose 122 mg/dL (74-106); Magnesium 2.2 mg/dL (1.6-2.6); Potassium 4.1 mmol/L (3.5-5.1); Sodium 137 mmol/L (136-145)
[2023-09-10 22:48] LABS: Bilirubin, Total 1.3 mg/dL (0.2-1.0); Total Protein 7.1 g/dL (5.7-8.2)
[2023-09-11] MEDS ORDERED: cefTRIAXone SOD 1,000 MG VL IM ONE
[2023-09-11] MEDS ORDERED: AMOX875T4 PO (00:08)
[2023-09-11 01:28] VITALS: BP 103/55; PULSE 77; RESP 18; TEMP 98.2; O2SAT 98
== END 2023-09-11 01:31 | disposition home or self-care (01) ==
LOC: EDBD 21:09 → ER 21:09
DX: L03.116 Cellulitis of left lower limb (principal); R50.9 Fever, unspecified; I13.0 Hypertensive heart and chronic kidney disease with heart failure and stage 1 through stage 4 chronic kidney disease, or unspecified chronic kidney disease; N18.9 Chronic kidney disease, unspecified; I50.9 Heart failure, unspecified; I25.10 Atherosclerotic heart disease of native coronary artery without angina pectoris; F41.9 Anxiety disorder, unspecified; F32.9 Major depressive disorder, single episode, unspecified; E78.5 Hyperlipidemia, unspecified; I25.2 Old myocardial infarction; Z98.890 Other specified postprocedural states; Z79.899 Other long term (current) drug therapy
CPT/HCPCS: 36415; 71045; 80053; 83735; 83880; 84484; 85025; 85379; 85610; 85730; 93971; 96372; 99285; J0696

== ENCOUNTER 2023-10-13 08:02 | Emergency (ER) | payer MEDICAID ==
[~2023-10-13] VITALS: Ht 175.3 cm; Wt 87.6 kg
[~2023-10-13 08:02] MED LIST changes: +AMOX875T4 PO
[2023-10-13 08:24] VITALS: BP 140/70; PULSE 69; RESP 69; TEMP 98.2; O2SAT 95
[2023-10-13] MEDS ORDERED: KETOROLAC TROMETH 60MG/2ML VIAL IM ONE (08:45)
[2023-10-13] MEDS ORDERED: MELO7.5T7 PO (09:16)
== END 2023-10-13 09:20 | disposition home or self-care (01) ==
LOC: ER 08:02
DX: M23.92 Unspecified internal derangement of left knee (principal); M17.12 Unilateral primary osteoarthritis, left knee; I13.0 Hypertensive heart and chronic kidney disease with heart failure and stage 1 through stage 4 chronic kidney disease, or unspecified chronic kidney disease; N18.9 Chronic kidney disease, unspecified; I50.9 Heart failure, unspecified; I25.10 Atherosclerotic heart disease of native coronary artery without angina pectoris; I25.2 Old myocardial infarction; E78.5 Hyperlipidemia, unspecified; Z90.49 Acquired absence of other specified parts of digestive tract; Z90.89 Acquired absence of other organs; Z79.899 Other long term (current) drug therapy; Z79.2 Long term (current) use of antibiotics; Z88.8 Allergy status to other drugs, medicaments and biological substances
CPT/HCPCS: 73562; 96372; 99283; J1885

== ENCOUNTER 2023-11-20 06:08 | Emergency (ER) | payer MEDICAID ==
[~2023-11-20] VITALS: Ht 175.3 cm; Wt 87.2 kg
[~2023-11-20 06:08] MED LIST changes: +MELO7.5T7 PO
[2023-11-20 07:17] LABS: Basophils # (auto) 0 10 ^3/uL (0-0.2); Basophils % (auto) 0.3 % (0.0-2.0); Eosinophils # (auto) 0.1 10 ^3/uL (0-0.8); Eosinophils % (auto) 1.8 % (0.0-7.0); Hematocrit 42.1 % (41.0-53.0); Hemoglobin 14.5 g/dL (13.5-17.5); Lymphocytes % (auto) 25.9 % (10.0-50.0); Mean Corpuscular Hemoglobin 31.3 pg (28.0-32.0); Mean Corpuscular Hgb Conc. 34.5 g/dL (32.0-36.0); Mean Corpuscular Volume 90.8 fL (80.0-100.0); Monocytes # (auto) 0.7 10 ^3/uL (0-1.3); Monocytes % (auto) 9.4 % (0.0-12.0); Neutrophils # (auto) 4.9 10 ^3/uL (1.6-8.6); Neutrophils % (auto) 62.6 % (37.0-80.0); Nucleated Red Blood Cells % 0.1 %; Red Blood Cells 4.64 10^6/uL (4.5-5.90); Red Cell Distribution Width 13.5 % (11.8-14.3); White Blood Cell 7.8 10^3/uL (4.4-10.8)
[2023-11-20 08:05] LABS: Erythrocyte Sedimentation Rate 28 mm/hr (0-20)
[2023-11-20] MEDS ORDERED: CLIN150C PO (09:38)
[2023-11-20] MEDS ORDERED: APIX5TAB PO (09:39)
[2023-11-20] MEDS: APIXABAN 5 MG TAB PO SCH (10:00)
[2023-11-20 10:03] VITALS: BP 139/69; PULSE 79; RESP 18; TEMP 98.3; O2SAT 96
[2023-11-27] MEDS ORDERED: APIXABAN 5 MG TAB PO SCH (10:00)
== END 2023-11-20 10:06 | disposition home or self-care (01) ==
LOC: ER 06:08
DX: I82.501 Chronic embolism and thrombosis of unspecified deep veins of right lower extremity (principal); L03.115 Cellulitis of right lower limb; I13.0 Hypertensive heart and chronic kidney disease with heart failure and stage 1 through stage 4 chronic kidney disease, or unspecified chronic kidney disease; N18.9 Chronic kidney disease, unspecified; I50.9 Heart failure, unspecified; I25.2 Old myocardial infarction; I25.10 Atherosclerotic heart disease of native coronary artery without angina pectoris; E78.5 Hyperlipidemia, unspecified; Z90.49 Acquired absence of other specified parts of digestive tract; Z90.89 Acquired absence of other organs; Z79.82 Long term (current) use of aspirin; Z79.899 Other long term (current) drug therapy; Z79.2 Long term (current) use of antibiotics; Z88.8 Allergy status to other drugs, medicaments and biological substances
CPT/HCPCS: 36415; 85025; 85652; 93971

== ENCOUNTER 2025-01-29 10:42 | Inpatient (IN) | payer MEDICARE, MEDICAID ==
[2025-01-29] VITALS (7 sets, daily range): BP systolic 103–144; BP diastolic 48–91; PULSE 72–81; RESP 16–18; TEMP 98.3–98.8; O2SAT 92–96
[~2025-01-29] VITALS: Ht 175.3 cm; Wt 91.0 kg
[~2025-01-29 10:42] MED LIST changes: -CAR125T PO; +CARV-216 PO; +CLIN150C PO; +CLIN1CAP70 PO; -CLIN300C70 PO
--- NOTE | 2025-01-29 11:45 | ED.PDOC ---
History of Present Illness HPI Comments 64-year-old male who comes in with chief complaint of right leg pain times approximately eight days with redness to the right leg. The patient was having swelling and increased pain. The patient was has a history of cellulitis in the past. Despite his oral antibiotics he was not getting any better. Patient denies any chest pain or shortness for breath. Chief Complaint: Lower Extremity Time Seen by MD: 10:43 Primary Care Provider: JULIO C Reviewed Notes: Nurses Notes, Medications, Allergies (Allergies listed above) Allergies: Uncoded Allergies: POLIO (Allergy, Unknown, 08/12/15) POLIO VACCINE POLIO VAC (Allergy, Unknown, 08/09/19) Home Meds Active Scripts Apixaban Base (ELIQUIS) 5 Mg Tab, 5 MG PO BID for 30 Days, #60 TAB Prov:SEAN VENTURA MD 11/20/23 Apixaban Base (ELIQUIS) 5 Mg Tab, 10 MG PO BID for 7 Days, TAB 10MG BID X 7 DAYS THEN 5MG PO BID FOR AT LEAST 6 MONTHS FOR DVT/PE TREATMENT Prov:SEAN VENTURA MD 11/20/23 Clindamycin Hcl (CLEOCIN) 150 Mg Cap, 1 CAP PO TID, #30 CAP Prov:SEAN VENTURA MD 11/20/23 Meloxicam (Meloxicam) 7.5 Mg Tab, 1 TAB PO DAILY, #30 TAB 1 Refill Prov:EMANUEL DIAS 10/13/23 Amoxicillin & Pot Clavulanate (Amoxicillin/Potassium Cla) 875 Mg Tab, 1 TAB PO BID for 10 Days, #20 TAB Prov:CAPRI LONDON 09/11/23 Clindamycin Hcl (Clindamycin Hcl) 300 Mg Cap, 2 CAP PO TID, #30 CAP Prov:LILIBETH BEAULIEU MD 10/26/22 Potassium Chloride (Klor-Con M20) 20 Meq Tab, 20 MEQ PO DAILY, #30 TAB Prov:RADHA MC MD 08/19/19 Ipratropium [place] (Ipratropium [place]) 0.02 % Lynette, 0.5 MG NEB Q6HWA, #1 ML 1 Refill Prov:RADHA MC MD 08/19/19 Furosemide (Furosemide) 40 Mg Tab, 40 MG PO DAILY, #30 TAB Prov:RADHA MC MD 08/19/19 Carvedilol (COREG) 12.5 Mg Tab, 25 MG PO Q12HR, #60 TAB Prov:RADHA MC MD 08/19/19 Aspirin (Asa) 81 Mg Ch, 81 MG PO DAILY, #30 TAB.CHEW Prov:RADHA MC MD 08/19/19 Albuterol Sulfate (Ventolin) 2.5 Mg/0.5 Ml Nb, 2.5 MG NEB Q6HWA PRN, #1 INH 1 Refill Prov:RADHA MC MD 08/19/19 Reported Medications Sildenafil Citrate (Sildenafil) 25 Mg Tab, 20 MG PO TID, TAB 07/03/22 Ambrisentan (Ambrisentan) 10 Mg Tab, 10 MG PO DAILY for pulmonary hypertension, TAB 07/03/22 Hydrocodone-Acetaminophen (Hydrocodone Bitartrate/AC 10-325 mg) 1 Tab Tab, 1 TAB PO TIDP PRN for PAIN SCALE 7 THRU 10, TAB 07/02/22 Apixaban Base (ELIQUIS) 5 Mg Tab, 5 MG PO BID, TAB 07/15/21 Polyethylene Glycol (MIRALAX 17GM PWD) 17 Gm Pw, PO, #527 GRAMS 07/15/21 Pantoprazole Sodium Sesquihydr (Protonix) 40 Mg Tab, 40 MG PO DAILY, #30 TAB 07/15/21 Rosuvastatin Calcium (Crestor) 10 Mg Tab, 10 MG PO DAILY, TAB 07/15/21 Ondansetron (Zofran) 4 Mg Tab, 8 MG PO, MG 07/15/21 Lisinopril (Lisinopril) 20 Mg Tab, 20 MG PO DAILY for 30 Days, MG 07/15/21 Sertraline Hcl (Sertraline Hcl) 50 Mg Tab, PO DAILY for 30 Days, MG 08/09/19 Buspirone Hcl (Buspirone Hcl) 5 Mg Tab, PO Q12HR for 30 Days, MG 08/09/19 Metformin Hydrochloride (Metformin Hcl) 500 Mg Tab, 1 TAB PO BID 12/05/12 Gemfibrozil (Gemfibrozil) 600 Mg Tab, 1 TAB PO BID 12/05/12 Simvastatin (Simvastatin) 20 Mg Tab, 1 TAB PO DAILY 12/05/12 Information Source: Patient Mode of Arrival: Wheelchair Severity: Moderate Timing: Days Duration: Since onset Prehospital treatment: None Associated signs and symptoms Redness to the right leg with swelling Past Medical History PAST MEDICAL HISTORY: Anxiety, CAD, Cancer (Prostate cancer), CHF, CKF, Depression, High Lipids, HTN, Liver, HI Past Medical History (Other): Sleep apnea Surgical History: Appendectomy, Tonsillectomy Surgical History (Other): Cataract surgery, left knee surgery, right leg surgery, previous cellulitis Family History Family History: Family hx of Cancer Social History Smoker: Non-Smoker Alcohol: Occasionally Drugs: Denies Drug Use Lives In: Home Constitutional: denies: chills, diaphoresis, fatigue, fever, malaise, sweats, weakness, others EENTM: denies: blurred vision, double vision, ear bleeding, ear discharge, ear drainage, ear pain, ear ringing, eye pain, eye redness, hearing loss, mouth pain, mouth swelling, nasal discharge, nose bleeding, nose congestion, nose pain, photophobia, tearing, throat pain, throat swelling, voice changes, others Respiratory: denies: cough, hemoptysis, orthopnea, SOB at rest, shortness of breath, SOB with excertion, stridor, wheezing, others Cardiovascular: denies: chest pain, dizzy spells, diaphoresis, Dyspnea on exertion, edema, irregular heart beat, left arm pain, lightheadedness, palpitations, PND, syncope, others Gastrointestinal: denies: abdomen distended, abdominal pain, blood streaked bowels, constipated, diarrhea, dysphagia, difficulty swallowing, hematemesis, melena, nausea, poor appetite, poor fluid intake, rectal bleeding, rectal pain, vomiting, others Genitourinary: denies: burning, dysuria, flank pain, frequency, hematuria, incontinence, penile discharge, penile sore, pain, testicle pain, testicle swelling, urgency, others Neurological: denies: dizziness, fainting, headache, left sided numbness, left sided weakness, numbness, paresthesia, pre-existing deficit, right sided numbnes s, right sided weakness, seizure, speech problems, tingling, tremors, weakness, others Musculoskeletal: reports: others (Redness and swelling to the right lower extremity); denies: back pain, gout, joint pain, joint swelling, muscle pain, muscle stiffness, neck pain Integumetry: denies: bruises, change in color, change in hair/nails, dryness, laceration, lesions, lumps, rash, wounds, others Allergic/Immunocompromised: denies: Difficulty Healing, Frequent Infections, Hives, Itching, others Hematologic/Lymphatic: denies: anemia, blood clots, easy bleeding, easy bruising, swollen glands, others Endocrine: denies: excessive hunger, excessive sweating, excessive thirst, excessive urination, flushing, intolerance to cold, intolerance to heat, unexplained weight gain, unexplained weight loss, others Psychiatric: denies: anxiety, bipolar disorder, depression, hopeless, panic disorder, schizophrenia, sleepless, suicidal, others Physical Exam General Appearance: Moderate Distress HEENT: Normal ENT Inspection, Pharynx Normal, TMs Normal Neck: Full Range of Motion, Non-Tender, Normal, Normal Inspection Respiratory: Chest Non-Tender, Lungs Clear, No Accessory Muscle Use, No Respiratory Distress, Normal Breath Sounds Cardiovascular: No Edema, No JVD, No Murmur, No Gallop, Normal Peripheral Pulses, Regular Rate/Rhythm Breast Exam: Deferred Gastrointestinal: No Organomegaly, Non Tender, No Pulsatile Mass, Normal Bowel Sounds, Soft Genitalia: Deferred Pelvic: Deferred Rectal: Deferred Extremities: Inflammation (Swelling as inflammation time right lower extremity or), No calf tenderness, Normal capillary refill, Pedal edema Musculoskeletal : Apperance: Normal Neurologic: Alert, industrial nurse II-XII nml as Tested, No Motor Deficits, Normal Affect, Normal Mood, No Sensory Deficits Cerebellar Function: Normal Reflexes: Normal Skin: Dry, Normal Color, Warm Lymphatic: No Adenopathy Was a procedure done? Was a procedure done?: No Differential Dx Considerations may include: Generalized weakness, cellulitis, DVT X-Ray, Labs, Meds, VS Vital Signs Date Time Temp Pulse Resp B/P (MAP) Pulse Ox O2 Delivery O2 Flow Rate FiO2 01/29/25 12:30 72 18 96 Room Air* 0 21 01/29/25 12:25 84 18 147/73 01/29/25 12:07 97.7 89 18 152/84 (106) 94 97.7 01/29/25 11:04 98.7 91 18 128/55 (79) 97 98.7 Lab Test 01/29/25 11:33 Range/Units White Blood Count 9.2 4.4-10.8 10^3/uL Red Blood Count 5.13 4.5-5.90 10^6/uL Hemoglobin 16.0 13.5-17.5 g/dL Hematocrit 46.2 41.0-53.0 % Mean Corpuscular Volume 90.1 80.0-100.0 fL Mean Corpuscular Hemoglobin 31.2 28.0-32.0 pg Mean Corpuscular Hemoglobin Concent 34.6 32.0-36.0 g/dL Red Cell Distribution Width 13.5 11.8-14.3 % Platelet Count 130 L 140-450 10^3/uL Mean Platelet Volume 8.3 6.9-10.8 fL Neutrophils (%) (Auto) 72.1 37.0-80.0 % Lymphocytes (%) (Auto) 18.5 10.0-50.0 % Monocytes (%) (Auto) 8.1 0.0-12.0 % Eosinophils (%) (Auto) 0.9 0.0-7.0 % Basophils (%) (Auto) 0.4 0.0-2.0 % Neutrophils # (Auto) 6.6 1.6-8.6 10 ^3/uL Lymphocytes # (Auto) 1.7 0.4-5.4 10 ^3/uL Monocytes # (Auto) 0.7 0-1.3 10 ^3/uL Eosinophils # (Auto) 0.1 0-0.8 10 ^3/uL Basophils # (Auto) 0 0-0.2 10 ^3/uL Nucleated Red Blood Cells 0.1 % Erythrocyte Sedimentation Rate 8 0-20 mm/hr Sodium Level 140 136-145 mmol/L Potassium Level 3.8 3.5-5.1 mmol/L Chloride Level 106 98-107 mmol/L Carbon Dioxide Level 26 20-31 mmol/L Anion Gap 8 5-15 Blood Urea Nitrogen 18 9-23 mg/dL Creatinine 1.17 0.700-1.30 mg/dL Glomerular Filtration Rate Calc 69 >90 mL/min BUN/Creatinine Ratio 15.4 10.0-20.0 Serum Glucose 124 H 74-106 mg/dL Calcium Level 9.6 8.7-10.4 mg/dL Current Medications Medications (Trade) Dose Ordered Sig/Elba Route Start Time Stop Time Status Last Admin Sodium Chloride 1,000 ml @ 1,000 mls/hr Q1H ONCE IV 01/29/25 11:30 01/29/25 12:29 DC 01/29/25 12:20 Clindamycin Phosphate 50 ml @ 50 mls/hr ONCE ONCE IV 01/29/25 11:30 01/29/25 12:29 DC 01/29/25 12:20 Morphine Sulfate 4 mg ONCE ONCE IV 01/29/25 12:00 01/29/25 12:01 DC 01/29/25 12:25 Ondansetron HCl (Zofran) 4 mg ONCE ONCE IV 01/29/25 12:00 01/29/25 12:01 DC 01/29/25 12:24 IV Hep-Lock was established The patient was being started on clindamycin IV piggyback Ultrasound of the right lower extremity is negative for DVT The patient was given morphine 4 mg IV push for the pain The patient was given Zofran 4 mg IV push for the nausea The patient's CBC is within normal limits The chemistry panel is within normal limits At this time, the patient was being admitted to the hospitalist Images Reviewed?: Images reviewed and evaluated by me Time of 1ST Reevaluation: 13:14 Reevaluation 1ST: Unchanged Patient Education/Counseling: Diagnosis, Treatment, Prognosis Family Education/Counseling: No Family Present Additional Information -Reviewed patient's previous visit(s): - The following tests were ordered, and results were reviewed by me: cbc, bmp, esr, Rt lower DVT, - Additional information was gathered from interviewing the following independent Historian: pt - I reviewed and agreed with the following test results read by other provider: radiologist - I discussed treatments and results with medical personnel and: pt Comprehensive systems review obtained and negative except for what is stated in the HPI. Departure 1 Departure Time of Disposition: 13:11 Impression: Primary Impression: Cellulitis of right leg Disposition: ADMITTED INPATIENT Admit to: Med Surg Condition: Fair Critical Care Note Critical Care Time?: No Stability Stability form required: Yes Unstable for transfer: ED Physician Assesment (Clinical assesment) Heart Score Heart Score: Heart Score Response (Comments) Value History N/A 0 EKG N/A 0 Age N/A 0 Risk Factors N/A 0 Troponin N/A 0 Total 0 I personally scribed for SEAN VENTURA MD ([email or web address]) on 01/29/25 at 13:06. Electronically submitted by William Martin ([email or web address]). SEAN VENTURA MD January 29, 2025 11:45
[2025-01-29 12:09] LABS: Chloride 106 mmol/L (98-107); Potassium 3.8 mmol/L (3.5-5.1); Sodium 140 mmol/L (136-145)
[2025-01-29 12:10] LABS: Anion Gap 8 (5-15); Calcium 9.6 mg/dL (8.7-10.4); Carbon Dioxide 26 mmol/L (20-31)
[2025-01-29 12:12] LABS: Basophils # (auto) 0 10 ^3/uL (0-0.2); Basophils % (auto) 0.4 % (0.0-2.0); Eosinophils # (auto) 0.1 10 ^3/uL (0-0.8); Eosinophils % (auto) 0.9 % (0.0-7.0); Hematocrit 46.2 % (41.0-53.0); Lymphocytes # (auto) 1.7 10 ^3/uL (0.4-5.4); Lymphocytes % (auto) 18.5 % (10.0-50.0); Mean Corpuscular Hemoglobin 31.2 pg (28.0-32.0); Mean Corpuscular Hgb Conc. 34.6 g/dL (32.0-36.0); Mean Corpuscular Volume 90.1 fL (80.0-100.0); Monocytes # (auto) 0.7 10 ^3/uL (0-1.3); Monocytes % (auto) 8.1 % (0.0-12.0); Neutrophils # (auto) 6.6 10 ^3/uL (1.6-8.6); Neutrophils % (auto) 72.1 % (37.0-80.0); Nucleated Red Blood Cells % 0.1 %; Platelet Count (auto) 130 10^3/uL (140-450); Red Blood Cells 5.13 10^6/uL (4.5-5.90); Red Cell Distribution Width 13.5 % (11.8-14.3); White Blood Cell 9.2 10^3/uL (4.4-10.8)
[2025-01-29 12:15] LABS: BUN/Creatinine Ratio 15.4 (10.0-20.0); Blood Urea Nitrogen 18 mg/dL (9-23)
[2025-01-29 12:16] LABS: Glucose 124 mg/dL (74-106)
[2025-01-29] MEDS: CLINDAMYCIN 600MG IV 50 ML IV ONE (12:20)
[2025-01-29] MEDS: SODIUM CHLORIDE 0.9% 1,000 ML IV ONE (12:20)
[2025-01-29] MEDS: ONDANSETRON HCL 4 MG/2 ML VIAL IV ONE (12:24)
[2025-01-29] MEDS: MORPHINE SULFATE 4 MG/ML SYR/VIAL IV ONE (12:25)
--- NOTE | 2025-01-29 12:31 | DVH ---
Clinical History: right leg redness Comparison: US RT LOWER DVT on DOS: 11/20/23, US LT LOWER DVT on DOS: 09/10/23, US BILAT LOWER DVT on DOS: 08/15/23, US LT LOWER DVT on DOS: 05/25/23, US RT LOWER DVT on DOS: 05/23/23 Technique: Duplex Doppler evaluation of the deep venous system of the right lower extremity from the common femo ral vein to the popliteal vein including color Doppler and spectral/pulsed waveform analysis was perf ormed. Findings: The common femoral vein demonstrates appropriate compressibility and waveform variability. There is compressibility/patency of the great saphenous vein at the proximal thigh. The femoral vein demonstrates appropriate compressibility and waveform variability. The deep femoral vein demonstrates appropriate compressibility and waveform variability. The popliteal vein demonstrates appropriate compressibility and waveform variability. There is normal compressibility at the tibioperoneal trunk. Impression: No rightdeep venous thrombosis. If clinical concern/symptoms persist or worsen, short-interval follow-up study is suggested.
[2025-01-29 12:36] LABS: Erythrocyte Sedimentation Rate 8 mm/hr (0-20)
--- NOTE | 2025-01-29 13:15 | DVHHP2 ---
History of Present Illness Reason for Visit: right leg swelling History of Present Illness 64-year-old male with an extensive medical history including pulmonary hypertension, obstructive sleep apnea (MERISSA), chronic heart failure (CHF), chronic kidney disease (CKD), coronary artery disease (CAD) with history of myocardial infarction (MO), prostate cancer, cellulitis, anxiety, depression, hyperlipidemia, and hypertension, presenting with right leg swelling and pain for the past three days. The patient states he previously had similar symptoms in his left leg which self-resolved without intervention or antibiotics. He denies any recent trauma, chest pain, or shortness of breath but reports body chills and severe pain in the right leg. He suspects the source of infection may have originated from a previously present fungal infection between his toes, which now appears resolved. On arrival to the ED, he was hemodynamically stable. Physical exam revealed right lower extremity edema and tenderness without fluctuance. No open wounds were visualized. Labs showed platelet count 130, glucose 124, and CBC and CMP otherwise unremarkable. Ultrasound of the lower extremity was negative for DVT. Given the patients comorbidities and symptoms concerning for cellulitis, he will be admitted for IV antibiotics, pain management, and further evaluation. Past Medical History see hpi above Past Surgical History see hpi above Family History Reviewed, non-contributory to the management of this case. Past Social History The patient lives at home, denies smoking, alcohol or illicit drugs abuse. Review of Systems Constitutional: No: Fever, Chills, Sweats, Weakness, Malaise, Other Eyes: No: Pain, Vision change, Conjunctivae inflammation, Eyelid inflammation, Other, Redness ENT: No: Ear pain, Ear discharge, Nose pain, Nose discharge, Nose congestion, Mouth pain, Mouth swelling, Throat pain, Throat swelling, Other Respiratory: No: Cough, Dry, Shortness of breath, SOB with excertion, Wheezing, Hemoptysis, Pleuritic Pain, Sputum, Wheezing, Other Cardiovascular: No: Chest Pain, Palpitations, Orthopnea, Paroxysmal Noc. Dyspnea, Edema, Lt Headedness, Other Gastrointestinal: No: Nausea, Vomiting, Abdominal Pain, Diarrhea, Constipation, Melena, Hematochezia, Other Genitourinary: No Dysuria, No Frequency, No Incontinence, No Hematuria, No Retention, No Other Musculoskeletal: leg pain; No: other, neck pain, shoulder pain, arm pain, back pain, hand pain, foot pain Skin: No: Rash, Lesions, Jaundice, Bruising, Other Neurological: No: Weakness, Numbness, Incoordination, Change in speech, Confusion, Seizures, Other Allergies: Uncoded Allergies: POLIO (Allergy, Unknown, 08/12/15) POLIO VACCINE POLIO VAC (Allergy, Unknown, 08/09/19) Exam Vital Signs Vital Signs Date Time Temp Pulse Resp B/P (MAP) Pulse Ox O2 Delivery O2 Flow Rate FiO2 01/29/25 12:30 72 18 96 Room Air* 0 21 01/29/25 12:25 147/73 01/29/25 12:07 97.7 97.7 General Appearance: Alert, Oriented X3, Cooperative, No acute distress HEENT: Atraumatic, PERRLA, EOMI, Mucous membr. moist/pink Respiratory: Clear to auscultation, Normal air movement Cardiovascular: Regular rate, Normal S1, Normal S2, No murmurs Abdominal: Normal bowel sounds, Soft, No tenderness, No hepatospenomegaly, No masses Extremities: No clubbing, No cyanosis, Other (right lower ext with swelling compartment soft nvi +silt no open wound ) Skin: No rashes, No breakdown, No significant lesion Neuro: Normal gait, Normal speech, Strength at 5/5 X4 ext, Normal tone, Sensation intact, Cranial nerves 3-12 NL Psych/Mental Status: Mental status NL, Mood NL Labs/Xrays Ultrasound negative for DVT I reviewed labs, imaging CT scan abdomen pelvis, EKG and all diagnostic studies on this patient from ED records and the medical chart Labs Test 01/29/25 11:33 Range/Units White Blood Count 9.2 4.4-10.8 10^3/uL Red Blood Count 5.13 4.5-5.90 10^6/uL Hemoglobin 16.0 13.5-17.5 g/dL Hematocrit 46.2 41.0-53.0 % Mean Corpuscular Volume 90.1 80.0-100.0 fL Mean Corpuscular Hemoglobin 31.2 28.0-32.0 pg Mean Corpuscular Hemoglobin Concent 34.6 32.0-36.0 g/dL Red Cell Distribution Width 13.5 11.8-14.3 % Platelet Count 130 L 140-450 10^3/uL Mean Platelet Volume 8.3 6.9-10.8 fL Neutrophils (%) (Auto) 72.1 37.0-80.0 % Lymphocytes (%) (Auto) 18.5 10.0-50.0 % Monocytes (%) (Auto) 8.1 0.0-12.0 % Eosinophils (%) (Auto) 0.9 0.0-7.0 % Basophils (%) (Auto) 0.4 0.0-2.0 % Neutrophils # (Auto) 6.6 1.6-8.6 10 ^3/uL Lymphocytes # (Auto) 1.7 0.4-5.4 10 ^3/uL Monocytes # (Auto) 0.7 0-1.3 10 ^3/uL Eosinophils # (Auto) 0.1 0-0.8 10 ^3/uL Basophils # (Auto) 0 0-0.2 10 ^3/uL Nucleated Red Blood Cells 0.1 % Erythrocyte Sedimentation Rate 8 0-20 mm/hr Sodium Level 140 136-145 mmol/L Potassium Level 3.8 3.5-5.1 mmol/L Chloride Level 106 98-107 mmol/L Carbon Dioxide Level 26 20-31 mmol/L Anion Gap 8 5-15 Blood Urea Nitrogen 18 9-23 mg/dL Creatinine 1.17 0.700-1.30 mg/dL Glomerular Filtration Rate Calc 69 >90 mL/min BUN/Creatinine Ratio 15.4 10.0-20.0 Serum Glucose 124 H 74-106 mg/dL Calcium Level 9.6 8.7-10.4 mg/dL Assessment/Plan Assessment/Plan 64-year-old male with extensive cardiovascular and oncologic history, presenting with acute right leg pain and swelling, likely cellulitis. acute Right lower extremity cellulitis Edema, pain, chills without open wound Suspected entry via resolved interdigital fungal infection Platelets mildly low at 130 Ultrasound negative for DVT Plan: Admit for IV antibiotic therapy Start vancomycin Ralph borders of erythema Monitor for progression, fevers, or systemic signs Pain control with acetaminophen or morphine PRN chronic problems Pulmonary hypertension Chronic systolic heart failure (HFrEF) Chronic kidney disease (Stage 34) Prostate cancer (status post-treatment) Hyperlipidemia Hypertension Anxiety and depression History of bilateral leg surgeries (right leg) FEN / PROPHYLAXIS (PPx) Fluids/Electrolytes/Nutrition Regular diet DVT Prophylaxis eliquis GI Prophylaxis Pantoprazole 40 mg IV daily for stress ulcer prevention DISPOSITION Admit to medicine for IV antibiotics and management of right lower extremity cellulitis in a patient with significant cardiopulmonary comorbidities. Plan discussed with: Patient Date of Service: January 29, 2025 Billing Provider: JOHN SANFORD DNP Common Visit Codes: [id number] INP/OBS CARE (HIGH) JOHN SANFORD DNP January 29, 2025 13:15
[2025-01-29] MEDS ORDERED: DOCUSATE SOD 100 MG CAP PO PRN (13:45)
[2025-01-29] MEDS ORDERED: MORPHINE SULFATE INJ 2 MG/ml SYRG IV PRN (13:45)
[2025-01-29] MEDS ORDERED: ALBUTEROL SULF 2.5 MG/0.5ML(0.5%) NEB SOLN NEB PRN (13:45)
[2025-01-29] MEDS ORDERED: VANCOMYCIN PER PHARMACY 0 MG IV SCH (13:45)
[2025-01-29] MEDS ORDERED: ONDANSETRON HCL 4 MG/2 ML VIAL IV PRN (13:45)
[2025-01-29] MEDS ORDERED: NITROGLYCERIN 0.4 MG SL TAB SL PRN (13:45)
[2025-01-29] MEDS: VANCOMYCIN 1.5GM/300ML 300 ML IV ONE (14:33)
[2025-01-29] MEDS: CARVEDILOL 3.125 MG TAB PO SCH (21:40)
[2025-01-29] MEDS: APIXABAN 5 MG TAB PO SCH (21:40)
[2025-01-29] MEDS: SILDENAFIL CITRATE 20 MG TAB PO SCH (21:40)
[2025-01-29] MEDS: ATORVASTATIN 20 MG TAB PO SCH (21:40)
[2025-01-29] MEDS ORDERED: busPIRone HCL 10 MG TAB PO SCH (22:00)
[2025-01-29] MEDS ORDERED: GEMFIBROZIL 600 MG TAB PO SCH (22:00)
[2025-01-30] VITALS (10 sets, daily range): BP systolic 94–140; BP diastolic 47–70; PULSE 63–81; RESP 15–19; TEMP 97.8–98.6; O2SAT 92–100
[2025-01-30] MEDS: VANCOMYCIN 1GM/200ML PM 200 ML IV SCH (04:31)
[2025-01-30] MEDS: FUROSEMIDE 40 MG TAB PO SCH (06:08)
[2025-01-30 07:26] LABS: Basophils # (auto) 0 10 ^3/uL (0-0.2); Basophils % (auto) 0.4 % (0.0-2.0); Eosinophils # (auto) 0.2 10 ^3/uL (0-0.8); Eosinophils % (auto) 2.8 % (0.0-7.0); Hematocrit 45.2 % (41.0-53.0); Hemoglobin 15.5 g/dL (13.5-17.5); Lymphocytes # (auto) 1.7 10 ^3/uL (0.4-5.4); Lymphocytes % (auto) 20.4 % (10.0-50.0); Mean Corpuscular Hemoglobin 31.1 pg (28.0-32.0); Mean Corpuscular Hgb Conc. 34.4 g/dL (32.0-36.0); Mean Corpuscular Volume 90.6 fL (80.0-100.0); Monocytes # (auto) 0.7 10 ^3/uL (0-1.3); Monocytes % (auto) 8.1 % (0.0-12.0); Neutrophils # (auto) 5.8 10 ^3/uL (1.6-8.6); Neutrophils % (auto) 68.3 % (37.0-80.0); Nucleated Red Blood Cells % 0.1 %; Platelet Count (auto) 123 10^3/uL (140-450); Red Blood Cells 4.99 10^6/uL (4.5-5.90); Red Cell Distribution Width 13.2 % (11.8-14.3); White Blood Cell 8.5 10^3/uL (4.4-10.8)
[2025-01-30 07:39] LABS: Alanine Aminotransferase 23 U/L (7-40); Albumin 4.1 g/dL (3.2-4.8); Anion Gap 9 (5-15); Aspartate Aminotransferase 20 U/L (13-40); BUN/Creatinine Ratio 16.2 (10.0-20.0); Blood Urea Nitrogen 17 mg/dL (9-23); Calcium 9.5 mg/dL (8.7-10.4); Carbon Dioxide 24 mmol/L (20-31); Glucose 105 mg/dL (74-106); Potassium 4.4 mmol/L (3.5-5.1); Sodium 140 mmol/L (136-145); Total Protein 6.6 g/dL (5.7-8.2)
[2025-01-30 07:44] LABS: Alkaline Phosphatase 40 U/L (46-116); Bilirubin, Total 1.3 mg/dL (0.2-1.0); Chloride 107 mmol/L (98-107)
[2025-01-30] MEDS ORDERED: SERTRALINE HCL 50 MG TAB PO SCH (10:00)
[2025-01-30] MEDS: POTASSIUM CHL 20 Meq TABLET PO SCH (10:12)
[2025-01-30] MEDS: LISINOPRIL 20 MG TAB PO SCH (10:13)
[2025-01-30] MEDS: PANTOPRAZOLE 40 MG TAB PO SCH (10:13)
[2025-01-30] MEDS: ASPirin 81 mg TAB PO SCH (10:14)
--- NOTE | 2025-01-30 13:01 | DVHPN2 ---
Reviewed: Care Plan, H&P, Labs, Medications, Previous Orders Changes from previous H/P or p: No Changes Eyes: No Pain, No Vision change, No Conjunctivae inflammation, No Eyelid inflammation, No Other, No Redness ENT: No Ear pain, No Ear discharge, No Nose pain, No Nose discharge, No Nose congestion, No Mouth pain, No Mouth swelling, No Throat pain, No Throat swelling, No Other Cardiovascular: No Chest Pain, No Palpitations, No Orthopnea, No Paroxysmal Noc. Dyspnea, No Edema, No Lt Headedness, No Other Respiratory: No Cough, No Dry, No Shortness of breath, No SOB with excertion, No Wheezing, No Hemoptysis, No Pleuritic Pain, No Sputum, No Other Gastrointestinal: No Nausea, No Vomiting, No Abdominal Pain, No Diarrhea, No Constipation, No Melena, No Hematochezia, No Other Genitourinary: No Dysuria, No Frequency, No Incontinence, No Hematuria, No Retention, No Other Musculoskeletal: No other, No neck pain, No shoulder pain, No arm pain, No back pain, No hand pain; leg pain; No foot pain Skin: No Rash, No Lesions, No Jaundice, No Bruising, No Other Objective Vitals Vital Signs Date Time Temp Pulse Resp B/P (MAP) Pulse Ox O2 Delivery O2 Flow Rate FiO2 01/30/25 12:33 98.1 66 19 114/59 (77) 100 98.1 01/30/25 09:02 Room Air* 0 21 Intake/Output Intake and Output 01/30/25 07:00 Intake Total 200 ml Balance 200 ml Intake IV Total 200 ml Medications Current Medications Medications Dose Ordered Sig/Elba Route Start Time Stop Time Status Last Admin Dose Admin Albuterol 2.5 mg Q6HWA PRN NEB 01/29/25 13:45 Apixaban 5 mg BID PO 01/29/25 22:00 01/30/25 10:12 5 MG Aspirin 81 mg DAILY PO 01/30/25 10:00 01/30/25 10:14 81 MG Carvedilol 3.125 mg BID PO 01/29/25 22:00 01/30/25 10:14 3.125 MG Furosemide 40 mg QAM PO 01/30/25 07:00 01/30/25 06:08 40 MG Lisinopril 20 mg DAILY PO 01/30/25 10:00 01/30/25 10:13 20 MG Pantoprazole Sodium 40 mg DAILY PO 01/30/25 10:00 01/30/25 10:13 40 MG Potassium Chloride 20 meq DAILY PO 01/30/25 10:00 01/30/25 10:12 20 MEQ Patient Own Medication 10 mg DAILY PO 01/30/25 10:00 Sildenafil Citrate 20 mg TID PO 01/29/25 22:00 01/30/25 06:05 20 MG Atorvastatin Calcium 20 mg HS PO 01/29/25 22:00 01/29/25 21:40 20 MG Vancomycin HCl 0 ml @ 0 mls/hr UD IV 01/29/25 13:45 Ondansetron HCl 4 mg Q4HP PRN IV 01/29/25 13:45 Docusate Sodium 100 mg BIDPRN PRN PO 01/29/25 13:45 Morphine Sulfate 2 mg Q4HPRN PRN IV 01/29/25 13:45 Nitroglycerin 0.4 mg Q5MINP PRN SL 01/29/25 13:45 Hold Vancomycin HCl 200 ml @ 200 mls/hr Q12H IV 01/30/25 05:00 01/30/25 04:31 200 MLS/HR Laboratory Results Laboratory Tests 01/30/25 06:56 Chemistry Test 01/30/25 06:56 Albumin 4.1 g/dL (3.2-4.8) Calcium Level 9.5 mg/dL (8.7-10.4) Total Protein 6.6 g/dL (5.7-8.2) LFT Test 01/30/25 06:56 Alanine Aminotransferase (ALT) 23 U/L (7-40) Alkaline Phosphatase 40 U/L (46-116) L Aspartate Amino Transferase (AST) 20 U/L (13-40) Total Bilirubin 1.3 mg/dL (0.2-1.0) H Labs and/or images reviewed: Labs reviewed by me, Image(s) reviewed by me Assessment/Plan Assessment/Plan Acute lower extremity cellulitis vancomycin Pulmonary hypertension CHF CKD 3 History of prostate cancer Hypertension Hypercholesterolemia Anxiety Depression DVT right lower extremity ruled out Arterial ultrasound ordered Time spent 70 minutes Advanced care planning time 20 minutes Patient is full code Plan discussed with: Patient Date of Service: January 30, 2025 Billing Provider: AMY SIERRA MD Common Visit Codes: [id number] CARE 30-74 MIN AMY SIERRA MD January 30, 2025 13:01
[2025-01-31] VITALS (10 sets, daily range): BP systolic 103–142; BP diastolic 45–73; PULSE 56–92; RESP 16–20; TEMP 97.5–98; O2SAT 91–96
[2025-01-31] MEDS ORDERED: VANCOMYCIN 1GM/200ML PM 200 ML IV SCH (06:30)
[2025-01-31 07:37] LABS: Basophils # (auto) 0 10 ^3/uL (0-0.2); Basophils % (auto) 0.3 % (0.0-2.0); Eosinophils # (auto) 0.2 10 ^3/uL (0-0.8); Hematocrit 44.2 % (41.0-53.0); Hemoglobin 15.4 g/dL (13.5-17.5); Lymphocytes # (auto) 1.6 10 ^3/uL (0.4-5.4); Lymphocytes % (auto) 22.8 % (10.0-50.0); Mean Corpuscular Hemoglobin 31.3 pg (28.0-32.0); Mean Corpuscular Hgb Conc. 34.9 g/dL (32.0-36.0); Mean Corpuscular Volume 89.5 fL (80.0-100.0); Monocytes # (auto) 0.5 10 ^3/uL (0-1.3); Monocytes % (auto) 7.2 % (0.0-12.0); Neutrophils # (auto) 4.6 10 ^3/uL (1.6-8.6); Neutrophils % (auto) 66.7 % (37.0-80.0); Platelet Count (auto) 139 10^3/uL (140-450); Red Blood Cells 4.93 10^6/uL (4.5-5.90); Red Cell Distribution Width 13.3 % (11.8-14.3); White Blood Cell 6.9 10^3/uL (4.4-10.8)
[2025-01-31] MEDS: VANCOMYCIN 1GM/200ML PM 200 ML IV SCH (09:00)
--- NOTE | 2025-01-31 10:29 | DVHPN2 ---
Reviewed: Care Plan, H&P, Labs, Medications, Previous Orders Changes from previous H/P or p: No Changes Eyes: No Pain, No Vision change, No Conjunctivae inflammation, No Eyelid inflammation, No Other, No Redness ENT: No Ear pain, No Ear discharge, No Nose pain, No Nose discharge, No Nose congestion, No Mouth pain, No Mouth swelling, No Throat pain, No Throat swelling, No Other Cardiovascular: No Chest Pain, No Palpitations, No Orthopnea, No Paroxysmal Noc. Dyspnea, No Edema, No Lt Headedness, No Other Respiratory: No Cough, No Dry, No Shortness of breath, No SOB with excertion, No Wheezing, No Hemoptysis, No Pleuritic Pain, No Sputum, No Other Gastrointestinal: No Nausea, No Vomiting, No Abdominal Pain, No Diarrhea, No Constipation, No Melena, No Hematochezia, No Other Genitourinary: No Dysuria, No Frequency, No Incontinence, No Hematuria, No Retention, No Other Musculoskeletal: No other, No neck pain, No shoulder pain, No arm pain, No back pain, No hand pain; leg pain; No foot pain Skin: No Rash, No Lesions, No Jaundice, No Bruising, No Other Objective Vitals Vital Signs Date Time Temp Pulse Resp B/P (MAP) Pulse Ox O2 Delivery O2 Flow Rate FiO2 01/31/25 09:00 56 106/50 01/31/25 08:10 97.9 16 96 97.9 01/30/25 20:00 Room Air* 0 21 Intake/Output Intake and Output 01/31/25 07:00 Intake Total 680 ml Balance 680 ml Intake Oral 480 ml IV Total 200 ml # Voids 6 # Bowel Movements 2 Medications Current Medications Medications Dose Ordered Sig/Elba Route Start Time Stop Time Status Last Admin Dose Admin Albuterol 2.5 mg Q6HWA PRN NEB 01/29/25 13:45 Apixaban 5 mg BID PO 01/29/25 22:00 01/31/25 08:52 5 MG Aspirin 81 mg DAILY PO 01/30/25 10:00 01/31/25 08:52 81 MG Carvedilol 3.125 mg BID PO 01/29/25 22:00 01/30/25 21:35 3.125 MG Furosemide 40 mg QAM PO 01/30/25 07:00 01/30/25 06:08 40 MG Lisinopril 20 mg DAILY PO 01/30/25 10:00 01/30/25 10:13 20 MG Pantoprazole Sodium 40 mg DAILY PO 01/30/25 10:00 01/31/25 08:52 40 MG Potassium Chloride 20 meq DAILY PO 01/30/25 10:00 01/31/25 08:52 20 MEQ Patient Own Medication 10 mg DAILY PO 01/30/25 10:00 Sildenafil Citrate 20 mg TID PO 01/29/25 22:00 01/31/25 06:11 20 MG Atorvastatin Calcium 20 mg HS PO 01/29/25 22:00 01/30/25 21:35 20 MG Ondansetron HCl 4 mg Q4HP PRN IV 01/29/25 13:45 Docusate Sodium 100 mg BIDPRN PRN PO 01/29/25 13:45 Morphine Sulfate 2 mg Q4HPRN PRN IV 01/29/25 13:45 Nitroglycerin 0.4 mg Q5MINP PRN SL 01/29/25 13:45 Hold Cefepime HCl 50 ml @ 12.5 mls/hr Q12HR IV 01/31/25 22:00 UNV Laboratory Results Laboratory Tests 01/30/25 06:56 01/31/25 06:17 Labs and/or images reviewed: Labs reviewed by me, Image(s) reviewed by me Assessment/Plan Assessment/Plan Acute lower extremity cellulitis: Vancomycin discontinued , started on cefepime 1 g IV q.12h for 14 days Pulmonary hypertension CHF CKD 3 History of prostate cancer Hypertension Hypercholesterolemia Anxiety Depression DVT right lower extremity ruled out Patient requesting to be discharged home on home health for IV antibiotics Plan discussed with: Patient My Orders Orders - AMY SIERRA MD Procedure Category Date Status Time Cefepime 1gm/ 50ml PHA 01/31/25 Logged (Maxipime 1gm/50ml) 22:00 Insert Midline ORDERS 01/31/25 Transmitted 10:21 Communication Order ORDERS 01/31/25 Transmitted 10:21 * [employer] CONS 01/31/25 Transmitted Consult Home Health Nursing REFER 01/31/25 Transmitted 10:21 Date of Service: January 31, 2025 Billing Provider: AMY SIERRA MD Common Visit Codes: [id number] INP/OBS CARE(HIGH) AMY SIERRA MD January 31, 2025 10:29
--- NOTE | 2025-01-31 10:32 | DVHDS2 ---
Discharge Summary Date of Admission January 29, 2025 at 13:44 Date of Discharge: January 31, 2025 Admitting Diagnosis Right Lower leg infection Wounds: Cellulitis right lower leg Labs/Diagnostic Data: Laboratory Results Test 01/31/25 06:17 01/30/25 06:56 01/29/25 11:33 White Blood Count 6.9 10^3/uL (4.4-10.8) Red Blood Count 4.93 10^6/uL (4.5-5.90) Hemoglobin 15.4 g/dL (13.5-17.5) Hematocrit 44.2 % (41.0-53.0) Mean Corpuscular Volume 89.5 fL (80.0-100.0) Mean Corpuscular Hemoglobin 31.3 pg (28.0-32.0) Mean Corpuscular Hemoglobin Concent 34.9 g/dL (32.0-36.0) Red Cell Distribution Width 13.3 % (11.8-14.3) Platelet Count 139 10^3/uL (140-450) Mean Platelet Volume 8.5 fL (6.9-10.8) Neutrophils (%) (Auto) 66.7 % (37.0-80.0) Lymphocytes (%) (Auto) 22.8 % (10.0-50.0) Monocytes (%) (Auto) 7.2 % (0.0-12.0) Eosinophils (%) (Auto) 3.0 % (0.0-7.0) Basophils (%) (Auto) 0.3 % (0.0-2.0) Neutrophils # (Auto) 4.6 10 ^3/uL (1.6-8.6) Lymphocytes # (Auto) 1.6 10 ^3/uL (0.4-5.4) Monocytes # (Auto) 0.5 10 ^3/uL (0-1.3) Eosinophils # (Auto) 0.2 10 ^3/uL (0-0.8) Basophils # (Auto) 0 10 ^3/uL (0-0.2) Nucleated Red Blood Cells 0.0 % Creatinine 1.08 mg/dL (0.700-1.30) Glomerular Filtration Rate Calc 76 mL/min (>90) Vancomycin Level Trough 11.8 ug/mL (5-10) Sodium Level 140 mmol/L (136-145) Potassium Level 4.4 mmol/L (3.5-5.1) Chloride Level 107 mmol/L (98-107) Carbon Dioxide Level 24 mmol/L (20-31) Anion Gap 9 (5-15) Blood Urea Nitrogen 17 mg/dL (9-23) BUN/Creatinine Ratio 16.2 (10.0-20.0) Serum Glucose 105 mg/dL (74-106) Calcium Level 9.5 mg/dL (8.7-10.4) Total Bilirubin 1.3 mg/dL (0.2-1.0) Aspartate Amino Transferase (AST) 20 U/L (13-40) Alanine Aminotransferase (ALT) 23 U/L (7-40) Alkaline Phosphatase 40 U/L (46-116) Total Protein 6.6 g/dL (5.7-8.2) Albumin 4.1 g/dL (3.2-4.8) Erythrocyte Sedimentation Rate 8 mm/hr (0-20) Other Laboratory Tests 01/31/25 06:17 01/30/25 06:56 Brief Hx & Hospital Course: 84-year-old male with a history of congestive heart failure CKD three hypertension hypercholesterolemia anxiety depression history of prostate cancer came in for complaining of swelling of the right lower leg. Found to have cellulitis started on vancomycin changed to cefepime venous ultrasound right lower extremity negative for DVT. Patient says he has a lot of animals at home to be taken care of and wants to be discharged today. Refused [facility] facility placement. Discharged home on home health for cefepime 1 g IV q.12h for 14 days Consults/Reason for consult None Operations or Procedures Venous ultrasound right lower extremity Condition at Discharge: Fair Final Diagnosis/Problems List Acute lower extremity cellulitis: Vancomycin discontinued , started on cefepime 1 g IV q.12h for 14 days Pulmonary hypertension CHF CKD 3 History of prostate cancer Hypertension Hypercholesterolemia Anxiety Depression DVT right lower extremity ruled out Discharge Disposition: Home with Health Services Discharge Instruct/Medications Diet: Cardiac 2g Na,low cholest Activity: Light activity Follow Up/Referral: Resume all previous home medications Follow up with your primary Dr Medications: Cefepime 1 g IV q.12h for 14 days for right lower leg cellulitis by home health 39 (Time taken for discharge summary 39 minutes) Discharge Statement: "Patient was advised to return to the ER or call 911 if any headaches, dizziness, shortness of breath, chest pain, abdominal pain, bleeding, fevers, or worsening of medical condition. Patient was counseled about treatment plan, medications, possible side effects, patientverbalized understanding. All questions were answered to the best of my ability. This discharge took greater then 30 minutes in planning, reviewing documentation, counseling the patient, and discussing with other team members." ASSESSMENT ASSESSMENT Hospital Course Improved Assessment Acute lower extremity cellulitis: Vancomycin discontinued , started on cefepime 1 g IV q.12h for 14 days Pulmonary hypertension CHF CKD 3 History of prostate cancer Hypertension Hypercholesterolemia Anxiety Depression DVT right lower extremity ruled out Date of Service: January 31, 2025 Billing Provider: AMY SIERRA MD Common Visit Codes: [id number] DISCH DAY >30min AMY SIERRA MD January 31, 2025 10:32
[2025-01-31] MEDS: CEFEPIME 1GM/ 50ML 50 ML IV SCH (21:28)
[2025-02-01 08:00] VITALS: PULSE 68; RESP 20; O2SAT 95
[2025-02-01 09:41] VITALS: O2SAT 93
--- NOTE | 2025-02-01 11:12 | DVHPN2 ---
Reviewed: Care Plan, H&P, Labs, Medications, Previous Orders Changes from previous H/P or p: No Changes Eyes: No Pain, No Vision change, No Conjunctivae inflammation, No Eyelid inflammation, No Other, No Redness ENT: No Ear pain, No Ear discharge, No Nose pain, No Nose discharge, No Nose congestion, No Mouth pain, No Mouth swelling, No Throat pain, No Throat swelling, No Other Cardiovascular: No Chest Pain, No Palpitations, No Orthopnea, No Paroxysmal Noc. Dyspnea, No Edema, No Lt Headedness, No Other Respiratory: No Cough, No Dry, No Shortness of breath, No SOB with excertion, No Wheezing, No Hemoptysis, No Pleuritic Pain, No Sputum, No Other Gastrointestinal: No Nausea, No Vomiting, No Abdominal Pain, No Diarrhea, No Constipation, No Melena, No Hematochezia, No Other Genitourinary: No Dysuria, No Frequency, No Incontinence, No Hematuria, No Retention, No Other Musculoskeletal: No other, No neck pain, No shoulder pain, No arm pain, No back pain, No hand pain; leg pain; No foot pain Skin: No Rash, No Lesions, No Jaundice, No Bruising, No Other Objective Vitals Vital Signs Date Time Temp Pulse Resp B/P (MAP) Pulse Ox O2 Delivery O2 Flow Rate FiO2 02/01/25 08:00 68 20 95 Room Air* 0 21 02/01/25 06:21 113/61 01/31/25 21:00 97.7 97.7 Intake/Output Intake and Output 02/01/25 07:00 Intake Total 250 ml Balance 250 ml IV Total 250 ml Medications Current Medications Medications Dose Ordered Sig/Elba Route Start Time Stop Time Status Last Admin Dose Admin Albuterol 2.5 mg Q6HWA PRN NEB 01/29/25 13:45 Apixaban 5 mg BID PO 01/29/25 22:00 02/01/25 08:31 5 MG Aspirin 81 mg DAILY PO 01/30/25 10:00 02/01/25 08:32 81 MG Carvedilol 3.125 mg BID PO 01/29/25 22:00 01/31/25 21:28 3.125 MG Furosemide 40 mg QAM PO 01/30/25 07:00 01/30/25 06:08 40 MG Lisinopril 20 mg DAILY PO 01/30/25 10:00 01/30/25 10:13 20 MG Pantoprazole Sodium 40 mg DAILY PO 01/30/25 10:00 02/01/25 08:32 40 MG Potassium Chloride 20 meq DAILY PO 01/30/25 10:00 02/01/25 08:31 20 MEQ Patient Own Medication 10 mg DAILY PO 01/30/25 10:00 Sildenafil Citrate 20 mg TID PO 01/29/25 22:00 02/01/25 05:39 20 MG Atorvastatin Calcium 20 mg HS PO 01/29/25 22:00 01/31/25 21:27 20 MG Ondansetron HCl 4 mg Q4HP PRN IV 01/29/25 13:45 Docusate Sodium 100 mg BIDPRN PRN PO 01/29/25 13:45 Morphine Sulfate 2 mg Q4HPRN PRN IV 01/29/25 13:45 Nitroglycerin 0.4 mg Q5MINP PRN SL 01/29/25 13:45 Hold Cefepime HCl 50 ml @ 12.5 mls/hr Q12HR IV 01/31/25 22:00 02/01/25 08:30 12.5 MLS/HR Laboratory Results Laboratory Tests 01/30/25 06:56 01/31/25 06:17 Labs and/or images reviewed: Labs reviewed by me, Image(s) reviewed by me Assessment/Plan Assessment/Plan Acute lower extremity cellulitis: Vancomycin discontinued , started on cefepime 1 g IV q.12h for 14 days Pulmonary hypertension CHF CKD 3 History of prostate cancer Hypertension Hypercholesterolemia Anxiety Depression DVT right lower extremity ruled out Patient requesting to be discharged home on home health for IV antibiotics child and family services specialist working on arranging IV antibiotics Plan discussed with: Patient Date of Service: February 01, 2025 Billing Provider: AMY SIERRA MD Common Visit Codes: [id number] INP/OBS CARE(HIGH) AMY SIERRA MD February 01, 2025 11:12
[2025-02-01 11:14] VITALS: BP 113/61; PULSE 66; RESP 18; TEMP 36.5
[2025-02-01 11:29] VITALS: BP 113/61; PULSE 66; RESP 18; TEMP 36.5
[2025-02-01 13:59] VITALS: BP 113/61; PULSE 66; RESP 18; O2SAT 93
== END 2025-02-01 14:30 | disposition home health service (06) | DRG 603 ==
LOC: ER 10:42 → OVERFLOW 13:44 → WEST WING 22:02
PROVIDERS: ADMIT Family Medicine; ATTEND Family Medicine
PROC: 05HF33Z Insertion of Infusion Device into Left Cephalic Vein, Percutaneous Approach (ICD-10-PCS; principal; 2025-01-31)
PROC: B54NZZA Ultrasonography of Left Upper Extremity Veins, Guidance (ICD-10-PCS; 2025-01-31)
DX: L03.115 Cellulitis of right lower limb (principal); I50.22 Chronic systolic (congestive) heart failure; I13.0 Hypertensive heart and chronic kidney disease with heart failure and stage 1 through stage 4 chronic kidney disease, or unspecified chronic kidney disease; N18.30 Chronic kidney disease, stage 3 unspecified; I25.10 Atherosclerotic heart disease of native coronary artery without angina pectoris; F32.A Depression, unspecified; F41.9 Anxiety disorder, unspecified; I27.20 Pulmonary hypertension, unspecified; E78.00 Pure hypercholesterolemia, unspecified; I25.2 Old myocardial infarction; Z88.7 Allergy status to serum and vaccine; Z79.01 Long term (current) use of anticoagulants; Z79.3 Long term (current) use of hormonal contraceptives; Z79.899 Other long term (current) drug therapy; Z85.46 Personal history of malignant neoplasm of prostate
CPT/HCPCS: 36415; 80048; 80053; 80202; 82565; 85025; 85652; 93971; G0378; J2405; J3490

== ENCOUNTER 2025-05-06 14:14 | Emergency (ER) | payer MEDICARE, MEDICAID ==
[~2025-05-06] VITALS: Ht 175.3 cm; Wt 88.1 kg
--- NOTE | 2025-05-06 15:05 | DVH ---
ULTRASOUND OF SCROTUM AND CONTENTS. INDICATION: To rule out torsion COMPARISON: None TECHNIQUE: Multiple real-time grayscale sonographic and color and duplex Doppler images of the scrotu m and its contents were obtained. FINDINGS: The right testicle measures 5 cm. The left testicle measures 5 cm. Both testicles demonstrate homogeneous echotexture without evidence of focal lesions. The right epididymal head measures 2.7 cm. The left epididymal head measures 1.4 cm. Subsequent color and duplex Doppler interrogation of the testes demonstrated symmetric normal vascula r flow to both testicles. No focal areas of hyperemia were seen. Small bilateral hydroceles. Small left varicocele IMPRESSION: 1. No evidence of torsion, epididymitis, and/or orchitis.
--- NOTE | 2025-05-06 15:07 | ED.PDOC ---
History of Present Illness HPI Comments This is a 65 year old male with past medical history of prostate cancer, bilateral DVT on Eliquis, CHF, pulmonary hypertension presented to the ED with a chief complaint of left flank pain and hematuria since morning prior to this visit. The patient stated that left flank pain started in morning which was 7/1 0 sharp colicky pain, radiates to the groin and front of the thigh and associated with hematuria. He went to the urgent care and U/A revealed microscopic hematuria 1+ and referred the patient to the ER. The patient did mentioned relief of flank pain but complained of some discomfort in testicular region. For prostate cancer he is following In [facility] and his next appointment is tomorrow. He denies fever, chills, shortness of breath, dysuria or any changes in bowel habit Chief Complaint: Urinary Time Seen by MD: 14:21 Primary Care Provider: JULIO C Allergies: Uncoded Allergies: POLIO (Allergy, Unknown, 08/12/15) POLIO VACCINE POLIO VAC (Allergy, Unknown, 08/09/19) Home Meds Active Scripts Apixaban Base (ELIQUIS) 5 Mg Tab, 5 MG PO BID for 30 Days, #60 TAB Prov:SEAN VENTURA MD 11/20/23 Apixaban Base (ELIQUIS) 5 Mg Tab, 10 MG PO BID for 7 Days, TAB 10MG BID X 7 DAYS THEN 5MG PO BID FOR AT LEAST 6 MONTHS FOR DVT/PE TREATMENT Prov:SEAN VENTURA MD 11/20/23 Clindamycin Hcl (CLEOCIN) 150 Mg Cap, 1 CAP PO TID, #30 CAP Prov:SEAN VENTURA MD 11/20/23 Meloxicam (Meloxicam) 7.5 Mg Tab, 1 TAB PO DAILY, #30 TAB 1 Refill Prov:EMANUEL DIAS 10/13/23 Amoxicillin & Pot Clavulanate (Amoxicillin/Potassium Cla) 875 Mg Tab, 1 TAB PO BID for 10 Days, #20 TAB Prov:CAPRI LONDON 09/11/23 Clindamycin Hcl (Clindamycin Hcl) 300 Mg Cap, 2 CAP PO TID, #30 CAP Prov:LILIBETH BEAULIEU MD 10/26/22 Potassium Chloride (Klor-Con M20) 20 Meq Tab, 20 MEQ PO DAILY, #30 TAB Prov:RADHA MC MD 08/19/19 Ipratropium [place] (Ipratropium [place]) 0.02 % Lynette, 0.5 MG NEB Q6HWA, #1 ML 1 Refill Prov:RADHA MC MD 08/19/19 Furosemide (Furosemide) 40 Mg Tab, 40 MG PO DAILY, #30 TAB Prov:RADHA MC MD 08/19/19 Carvedilol (COREG) 12.5 Mg Tab, 25 MG PO Q12HR, #60 TAB Prov:RADHA MC MD 08/19/19 Aspirin (Asa) 81 Mg Ch, 81 MG PO DAILY, #30 TAB.CHEW Prov:RADHA MC MD 08/19/19 Albuterol Sulfate (Ventolin) 2.5 Mg/0.5 Ml Nb, 2.5 MG NEB Q6HWA PRN, #1 INH 1 Refill Prov:RADHA MC MD 08/19/19 Reported Medications Sildenafil Citrate (Sildenafil) 25 Mg Tab, 20 MG PO TID, TAB 07/03/22 Ambrisentan (Ambrisentan) 10 Mg Tab, 10 MG PO DAILY for pulmonary hypertension, TAB 07/03/22 Hydrocodone-Acetaminophen (Hydrocodone Bitartrate/AC 10-325 mg) 1 Tab Tab, 1 TAB PO TIDP PRN for PAIN SCALE 7 THRU 10, TAB 07/02/22 Apixaban Base (ELIQUIS) 5 Mg Tab, 5 MG PO BID, TAB 07/15/21 Polyethylene Glycol (MIRALAX 17GM PWD) 17 Gm Pw, PO, #527 GRAMS 07/15/21 Pantoprazole Sodium Sesquihydr (Protonix) 40 Mg Tab, 40 MG PO DAILY, #30 TAB 07/15/21 Rosuvastatin Calcium (Crestor) 10 Mg Tab, 10 MG PO DAILY, TAB 07/15/21 Ondansetron (Zofran) 4 Mg Tab, 8 MG PO, MG 07/15/21 Lisinopril (Lisinopril) 20 Mg Tab, 20 MG PO DAILY for 30 Days, MG 07/15/21 Sertraline Hcl (Sertraline Hcl) 50 Mg Tab, PO DAILY for 30 Days, MG 08/09/19 Buspirone Hcl (Buspirone Hcl) 5 Mg Tab, PO Q12HR for 30 Days, MG 08/09/19 Metformin Hydrochloride (Metformin Hcl) 500 Mg Tab, 1 TAB PO BID 12/05/12 Gemfibrozil (Gemfibrozil) 600 Mg Tab, 1 TAB PO BID 12/05/12 Simvastatin (Simvastatin) 20 Mg Tab, 1 TAB PO DAILY 12/05/12 Information Source: Patient Mode of Arrival: Ambulatory Severity: Moderate Timing: Hours Duration: Since onset Past Medical History PAST MEDICAL HISTORY: Anxiety, CAD, Cancer, CHF, CKF, Depression, High Lipids, HTN, Liver, [place] Surgical History: Appendectomy, Tonsillectomy Family History Family History: Family hx of Cancer Social History Smoker: Non-Smoker Alcohol: Occasionally Drugs: Denies Drug Use Lives In: Home Constitutional: denies: chills, diaphoresis, fatigue, fever, malaise, sweats, weakness, others EENTM: denies: blurred vision, double vision, ear bleeding, ear discharge, ear drainage, ear pain, ear ringing, eye pain, eye redness, hearing loss, mouth pain, mouth swelling, nasal discharge, nose bleeding, nose congestion, nose pain, photophobia, tearing, throat pain, throat swelling, voice changes, others Respiratory: denies: cough, hemoptysis, orthopnea, SOB at rest, shortness of breath, SOB with excertion, stridor, wheezing, others Cardiovascular: denies: chest pain, dizzy spells, diaphoresis, Dyspnea on exert ion, edema, irregular heart beat, left arm pain, lightheadedness, palpitations, PND, syncope, others Gastrointestinal: denies: abdomen distended, abdominal pain, blood streaked bowels, constipated, diarrhea, dysphagia, difficulty swallowing, hematemesis, melena, nausea, poor appetite, poor fluid intake, rectal bleeding, rectal pain, vomiting, others Genitourinary: reports: flank pain, hematuria, testicle swelling; denies: burning, dysuria, frequency, incontinence, penile discharge, penile sore, pain, testicle pain, urgency, others Neurological: denies: dizziness, fainting, headache, left sided numbness, left sided weakness, numbness, paresthesia, pre-existing deficit, right sided numbness, right sided weakness, seizure, speech problems, tingling, tremors, w eakness, others Integumetry: denies: bruises, change in color, change in hair/nails, dryness, laceration, lesions, lumps, rash, wounds, others Allergic/Immunocompromised: denies: Difficulty Healing, Frequent Infections, Hives, Itching, others Endocrine: denies: excessive hunger, excessive sweating, excessive thirst, excessive urination, flushing, intolerance to cold, intolerance to heat, unexplained weight gain, unexplained weight loss, others Psychiatric: denies: anxiety, bipolar disorder, depression, hopeless, panic disorder, schizophrenia, sleepless, suicidal, others Physical Exam General Appearance: No Apparent Distress, Normal HEENT: Normal ENT Inspection, Pharynx Normal, TMs Normal Neck: Full Range of Motion, Non-Tender, Normal, Normal Inspection Respiratory: Chest Non-Tender, Lungs Clear, No Accessory Muscle Use, No R espiratory Distress, Normal Breath Sounds Cardiovascular: No Edema, No JVD, No Murmur, No Gallop, Normal Peripheral Pulses, Regular Rate/Rhythm Breast Exam: Deferred Gastrointestinal: No Organomegaly, Non Tender, No Pulsatile Mass, Normal Bowel Sounds, Soft Genitalia: Deferred Pelvic: Deferred Rectal: Deferred Extremities: No calf tenderness, Normal capillary refill, Normal inspection, Normal range of motion, Non-tender, No pedal edema Neurologic: NOT DONE Cerebellar Function: NOT DONE Reflexes: NOT DONE Skin: NOT DONE Peripheral Pulses: 2+ carotid (R), 2+ carotid (L), 2+ femoral (R), 2+ femoral (L), 2+ dorsalis pedis (R), 2+ dorsalis pedis (L), 2+ Radial (R), 2+ Radial (L), 2+ Brachial (R), 2+ Brachial (L) Lymphatic: NOT DONE Was a procedure done? Was a procedure done?: No Differential Dx Considerations may include: Prostate cancer, kidney stone, bladder tumor, bleeding diathesis, RCC X-Ray, Labs, Meds, VS Vital Signs Date Time Temp Pulse Resp B/P (MAP) Pulse Ox O2 Delivery O2 Flow Rate FiO2 05/06/25 14:16 98.5 76 20 144/71 95 98.5 Lab Test 05/06/25 15:44 05/06/25 15:00 Range/Units Urine Color Light-brown Yellow Urine Clarity Turbid H Clear Urine pH 6.5 5.0-9.0 Urine Specific [place] 1.023 1.001-1.035 Urine Protein Trace H Negative Urine Ketones Negative Negative Urine Blood 3+ H Negative /uL Urine Nitrite Negative Negative Urine Bilirubin Negative Negative Urine Urobilinogen Normal Negative mg/dL Urine Leukocyte Esterase Trace Negative /uL Urine RBC 5410 0 - 3 /hpf Urine Microscopic WBC 56 H 0-3 /HPF Urine Squamous Epithelial Cells Few <5 /hpf Urine Bacteria None seen None Seen /hpf Urine Glucose Normal Normal mg/dL White Blood Count 7.1 4.4-10.8 10^3/uL Red Blood Count 5.35 4.5-5.90 10^6/uL Hemoglobin 16.9 13.5-17.5 g/dL Hematocrit 48.6 41.0-53.0 % Mean Corpuscular Volume 90.8 80.0-100.0 fL Mean Corpuscular Hemoglobin 31.6 28.0-32.0 pg Mean Corpuscular Hemoglobin Concent 34.8 32.0-36.0 g/dL Red Cell Distribution Width 13.8 11.8-14.3 % Platelet Count 159 140-450 10^3/uL Mean Platelet Volume 8.3 6.9-10.8 fL Neutrophils (%) (Auto) 65.8 37.0-80.0 % Lymphocytes (%) (Auto) 25.9 10.0-50.0 % Monocytes (%) (Auto) 6.4 0.0-12.0 % Eosinophils (%) (Auto) 1.4 0.0-7.0 % Basophils (%) (Auto) 0.5 0.0-2.0 % Neutrophils # (Auto) 4.7 1.6-8.6 10 ^3/uL Lymphocytes # (Auto) 1.8 0.4-5.4 10 ^3/uL Monocytes # (Auto) 0.5 0-1.3 10 ^3/uL Eosinophils # (Auto) 0.1 0-0.8 10 ^3/uL Basophils # (Auto) 0 0-0.2 10 ^3/uL Nucleated Red Blood Cells 0.1 % Sodium Level 141 136-145 mmol/L Potassium Level 3.9 3.5-5.1 mmol/L Chloride Level 107 98-107 mmol/L Carbon Dioxide Level 26 20-31 mmol/L Anion Gap 8 5-15 Blood Urea Nitrogen 20 9-23 mg/dL Creatinine 1.23 0.700-1.30 mg/dL Glomerular Filtration Rate Calc 65 >90 mL/min BUN/Creatinine Ratio 16.3 10.0-20.0 Serum Glucose 97 74-106 mg/dL Calcium Level 9.4 8.7-10.4 mg/dL X-Ray, Labs, Meds, VS Comment EXAM: CT CT AB PEL WO CON-NO ORAL OR IV HISTORY: Hematuria COMPARISON: CT CT AB PEL WO CON-NO ORAL OR IV on DOS: 03/17/23, ECIDC on DOS: 10/25/22, ABDOMEN LIMITED on DOS: 07/15/21 TECHNIQUE: Helical CT images of the abdomen and pelvis were performed without IV contrast. Sagittal and coronal reformatted images were obtained. This CT exam was performed using one or more of the following dose reduction techniques: Automated exposure control, adjustment of the mA and/or kv according to patient size, or the use of iterative reconstruction techniques. Radiation Dose: Abdomen/Pelvis: CTDIvol 14.22 mGy, DLP 827.63 mGy*cm. FINDINGS: CT abdomen: There is emphysema of the lung bases. The heart is not enlarged. Hepatic margins are mildly nodular. There is a left upper quadrant splenule. The noncontrast spleen, gallbladder, pancreas, kidneys, and adrenal glands are unremarkable. No abdominal aortic aneurysm. There is a small fatty umbilical hernia. CT pelvis: No abnormal bowel dilatation, free air, or free fluid. There are descending and sigmoid colon diverticula without evidence of acute diverticulitis. The appendix is not definitely visualized, and there is no specific evidence of acute appendicitis. There is a 3.5 mm calcification which is likely within the left distal ureter (image 80, series 2), although this is not associated with significant left hydronephrosis or hydroureter. No calculi or abnormal wall thickening are identified within the urinary bladder are unremarkable. The prostate is mildly enlarged. There are bilateral fatty inguinal indirect hernias. There is moderate lumbar degenerative disc disease and facet arthropathy. There is mild osteoarthritis of the hips. IMPRESSION: 1. 3.5 mm left distal ureteral calculus versus artifactual appearance due to phlebolith immediately adjacent to the left distal ureter, as there is no significant left hydronephrosis or hydroureter. Correlate for signs and symptoms of left renal colic. 2. Mildly nodular hepatic margins which may indicate early or mild cirrhosis. 3. Descending and sigmoid colon diverticulosis without evidence of acute diverticulitis. 4. Mild prostatic enlargement. 5. No evidence of bowel obstruction or other acute process in the abdomen or pelvis. ULTRASOUND OF SCROTUM AND CONTENTS. INDICATION: To rule out torsion COMPARISON: None TECHNIQUE: Multiple real-time grayscale sonographic and color and duplex Doppler images of the scrotum and its contents were obtained. FINDINGS: The right testicle measures 5 cm. The left testicle measures 5 cm. Both testicles demonstrate homogeneous echotexture without evidence of focal lesions. The right epididymal head measures 2.7 cm. The left epididymal head measures 1.4 cm. Subsequent color and duplex Doppler interrogation of the testes demonstrated symmetric normal vascular flow to both testicles. No focal areas of hyperemia were seen. Small bilateral hydroceles. Small left varicocele IMPRESSION: 1. No evidence of torsion, epididymitis, and/or orchitis. Images Reviewed?: Images reviewed and evaluated by me Time of 1ST Reevaluation: 16:40 Reevaluation 1ST: Improved Patient Education/Counseling: Diagnosis, Treatment Family Education/Counseling: No Family Present Comments This is a 65-year-old male presented to the ER with a chief complaint of left flank pain and hematuria. Physical exam does not demonstrated any CVA tenderness. During 1st re-evaluation patient mentioned resolved left flank pain CBC and BMP are unremarkable UA demonstrated blood 3+, pyuria CT abdomen pelvis without contrast showed distal ureteral calculus without any hydronephrosis. Blood work and imaging results were discussed with the patient. Patient was given option for inpatient admission and subsequent Urology cons ultation. He wants to go home and has scheduled appointment in [facility] with his oncologist tomorrow for prostate cancer Patient was sent home with cefdinir 300 mg p.o. b.i.d. for 5 days, tamsulosin 0.4 mg p.o. daily and advised to follow up with urologist in 1-2 weeks SEPSIS Sepsis Screen Date sepsis recognized/suspect: May 06, 2025 Time Sepsis recognized/suspect: 1415 Recent Procedure: No On Antibiotic Therapy: No Respiratory Rate >20: No Heart Rate >90: No Temp<36 C (96.8 F) or >38.3 C: No SBP <90 or MAP <65 mmHG: No New Acute Mental Status Change: No Is the patient on CPAP, BIPAP,: No Physician Orders Testicular Ultrasound (05/06/25 14:29) Ct Ab Pel Wo Con-No Oral Or Iv (05/06/25 14:29) Vital Signs Date Time Temp Pulse Resp B/P (MAP) Pulse Ox O2 Delivery O2 Flow Rate FiO2 05/06/25 14:16 98.5 76 20 144/71 95 98.5 Laboratory Tests Test 05/06/25 15:00 White Blood Count 7.1 10^3/uL (4.4-10.8) Departure 1 Departure Time of Disposition: 16:50 Impression: Primary Impression: Renal stone Additional Impression: UTI (urinary tract infection) Disposition: 01 HOME / SELF CARE / HOMELESS Condition: Fair e-Prescriptions Tamsulosin Hcl (Tamsulosin Hcl) 0.4 Mg Cap 1 CAP PO DAILY for 30 Days, #30 CAP Prov: DOE KESSLER RESIDENT 05/06/25 Cefdinir (Cefdinir) 300 Mg Cap 1 CAP PO BID for 5 Days, #10 CAP Prov: DOE KESSLER RESIDENT 05/06/25 Critical Care Note Critical Care Time?: No Stability Stability form required: No DOE KESSLER RESIDENT May 06, 2025 15:07
[2025-05-06 15:26] LABS: Hematocrit 48.6 % (41.0-53.0); Hemoglobin 16.9 g/dL (13.5-17.5); Mean Corpuscular Hemoglobin 31.6 pg (28.0-32.0); Mean Corpuscular Volume 90.8 fL (80.0-100.0); Nucleated Red Blood Cells % 0.1 %
[2025-05-06 15:31] LABS: Potassium 3.9 mmol/L (3.5-5.1); Sodium 141 mmol/L (136-145)
[2025-05-06 15:32] LABS: Anion Gap 8 (5-15); Carbon Dioxide 26 mmol/L (20-31)
[2025-05-06 15:33] LABS: Calcium 9.4 mg/dL (8.7-10.4)
[2025-05-06 15:34] LABS: Chloride 107 mmol/L (98-107)
--- NOTE | 2025-05-06 15:36 | DVH ---
EXAM: CT CT AB PEL WO CON-NO ORAL OR IV HISTORY: Hematuria COMPARISON: CT CT AB PEL WO CON-NO ORAL OR IV on DOS: 03/17/23, ECIDC on DOS: 10/25/22, ABDOMEN LIMITED on DOS: 07/15/21 TECHNIQUE: Helical CT images of the abdomen and pelvis were performed without IV contrast. Sagittal a nd coronal reformatted images were obtained. This CT exam was performed using one or more of the foll owing dose reduction techniques: Automated exposure control, adjustment of the mA and/or kv according to patient size, or the use of iterative reconstruction techniques. Radiation Dose: Abdomen/Pelvis: CTDIvol 14.22 mGy, DLP 827.63 mGy*cm. FINDINGS: CT abdomen: There is emphysema of the lung bases. The heart is not enlarged. Hepatic margins are mild ly nodular. There is a left upper quadrant splenule. The noncontrast spleen, gallbladder, pancreas, k idneys, and adrenal glands are unremarkable. No abdominal aortic aneurysm. There is a small fatty umb ilical hernia. CT pelvis: No abnormal bowel dilatation, free air, or free fluid. There are descending and sigmoid co adriano diverticula without evidence of acute diverticulitis. The appendix is not definitely visualized, and there is no specific evidence of acute appendicitis. There is a 3.5 mm calcification which is lik donna within the left distal ureter (image 80, series 2), although this is not associated with signific ant left hydronephrosis or hydroureter. No calculi or abnormal wall thickening are identified within the urinary bladder are unremarkable. The prostate is mildly enlarged. There are bilateral fatty ing uinal indirect hernias. There is moderate lumbar degenerative disc disease and facet arthropathy. The re is mild osteoarthritis of the hips. IMPRESSION: 1. 3.5 mm left distal ureteral calculus versus artifactual appearance due to phlebolith immediately a djacent to the left distal ureter, as there is no significant left hydronephrosis or hydroureter. Co rrelate for signs and symptoms of left renal colic. 2. Mildly nodular hepatic margins which may indicate early or mild cirrhosis. 3. Descending and sigmoid colon diverticulosis without evidence of acute diverticulitis. 4. Mild prostatic enlargement. 5. No evidence of bowel obstruction or other acute process in the abdomen or pelvis.
[2025-05-06 15:37] LABS: BUN/Creatinine Ratio 16.3 (10.0-20.0); Blood Urea Nitrogen 20 mg/dL (9-23); Glucose 97 mg/dL (74-106)
[2025-05-06 16:01] LABS: Urine Protein, UAD TRACE (Negative)
[2025-05-06] MEDS ORDERED: CEFD300C2 PO (16:52)
[2025-05-06] MEDS ORDERED: TAMS0.4C39 PO (16:52)
[2025-05-06 17:04] VITALS: BP 135/70; PULSE 95; RESP 18; TEMP 98.1; O2SAT 99
== END 2025-05-06 17:19 | disposition home or self-care (01) ==
LOC: ER 14:20
DX: N20.2 Calculus of kidney with calculus of ureter (principal); N39.0 Urinary tract infection, site not specified; I11.0 Hypertensive heart disease with heart failure; I50.9 Heart failure, unspecified; F32.A Depression, unspecified; F41.9 Anxiety disorder, unspecified; Z79.82 Long term (current) use of aspirin; Z79.84 Long term (current) use of oral hypoglycemic drugs; Z79.899 Other long term (current) drug therapy; Z90.49 Acquired absence of other specified parts of digestive tract; Z90.89 Acquired absence of other organs; Z98.890 Other specified postprocedural states
CPT/HCPCS: 36415; 74176; 76870; 80048; 81001; 85025

== ENCOUNTER 2025-05-09 09:54 | Emergency (ER) | payer MEDICARE, MEDICAID ==
[~2025-05-09] VITALS: Ht 175.3 cm; Wt 91.8 kg
[~2025-05-09 09:54] MED LIST changes: +CEFD300C2 PO; +TAMS0.4C39 PO
--- NOTE | 2025-05-09 11:12 | ED.PDOC ---
General HPI Comments A 65-YEAR-OLD MALE PRESENTS TO THE ED FOR FOLLOW UP STATUS POST ED VISIT X3 DAYS AGO. PATIENT REPORTS HE WAS SEEN AT [facility] FOR ABDOMINAL PAIN AND WAS DISCHARGED WITH KIDNEY STONES AND UTI. PATIENT CURRENTLY DENIES PAIN AND REPORTS THAT HE SUSPECTS TO HAVE PASSED THE STONE. PATIENT HAS NO FURTHER COMPLAINTS AT THIS TIME AND OTHERWISE DENIES FURTHER ASSOCIATED SYMPTOMS OF ABDOMINAL PAIN, DYSURIA, HEMATURIA, MIGRAINE, OR DIZZINESS. PATIENT IS ALERT, ORIENTED X 4, AND HAS STEADY GAIT. PT REQUESTS UA TEST AND MAKE SURE NO URINE INFECTION. Chief Complaint: Urinary Time Seen by MD: 10:48 Primary Care Provider: JULIO C Sheikh notes: Nurses Notes, Medications, Allergies Allergies: Uncoded Allergies: POLIO (Allergy, Unknown, 08/12/15) POLIO VACCINE POLIO VAC (Allergy, Unknown, 08/09/19) Home Meds Active Scripts Tamsulosin Hcl (Tamsulosin Hcl) 0.4 Mg Cap, 1 CAP PO DAILY for 30 Days, #30 CAP Prov:DOE KESSLER 05/06/25 Cefdinir (Cefdinir) 300 Mg Cap, 1 CAP PO BID for 5 Days, #10 CAP Prov:DOE KESSLER 05/06/25 Apixaban Base (ELIQUIS) 5 Mg Tab, 5 MG PO BID for 30 Days, #60 TAB Prov:SEAN VENTURA MD 11/20/23 Apixaban Base (ELIQUIS) 5 Mg Tab, 10 MG PO BID for 7 Days, TAB 10MG BID X 7 DAYS THEN 5MG PO BID FOR AT LEAST 6 MONTHS FOR DVT/PE TREATMENT Prov:SEAN VENTURA MD 11/20/23 Clindamycin Hcl (CLEOCIN) 150 Mg Cap, 1 CAP PO TID, #30 CAP Prov:SEAN VENTURA MD 11/20/23 Meloxicam (Meloxicam) 7.5 Mg Tab, 1 TAB PO DAILY, #30 TAB 1 Refill Prov:EMANUEL DIAS 10/13/23 Amoxicillin & Pot Clavulanate (Amoxicillin/Potassium Cla) 875 Mg Tab, 1 TAB PO BID for 10 Days, #20 TAB Prov:CAPRI LONDON 09/11/23 Clindamycin Hcl (Clindamycin Hcl) 300 Mg Cap, 2 CAP PO TID, #30 CAP Prov:LILIBETH BEAULIEU MD 10/26/22 Potassium Chloride (Klor-Con M20) 20 Meq Tab, 20 MEQ PO DAILY, #30 TAB Prov:RADHA MC MD 08/19/19 Ipratropium [place] (Ipratropium [place]) 0.02 % [place], 0.5 MG NEB Q6HWA, #1 ML 1 Refill Prov:RADHA MC MD 08/19/19 Furosemide (Furosemide) 40 Mg Tab, 40 MG PO DAILY, #30 TAB Prov:RADHA MC MD 08/19/19 Carvedilol (COREG) 12.5 Mg Tab, 25 MG PO Q12HR, #60 TAB Prov:RADHA CM MD 08/19/19 Aspirin (Asa) 81 Mg Ch, 81 MG PO DAILY, #30 TAB.CHEW Prov:RADHA MC MD 08/19/19 Albuterol Sulfate (Ventolin) 2.5 Mg/0.5 Ml Nb, 2.5 MG NEB Q6HWA PRN, #1 INH 1 Refill Prov:RADHA MC MD 08/19/19 Reported Medications Sildenafil Citrate (Sildenafil) 25 Mg Tab, 20 MG PO TID, TAB 07/03/22 Ambrisentan (Ambrisentan) 10 Mg Tab, 10 MG PO DAILY for pulmonary hypertension, TAB 07/03/22 Hydrocodone-Acetaminophen (Hydrocodone Bitartrate/AC 10-325 mg) 1 Tab Tab, 1 TAB PO TIDP PRN for PAIN SCALE 7 THRU 10, TAB 07/02/22 Apixaban Base (ELIQUIS) 5 Mg Tab, 5 MG PO BID, TAB 07/15/21 Polyethylene Glycol (MIRALAX 17GM PWD) 17 Gm Pw, PO, #527 GRAMS 07/15/21 Pantoprazole Sodium Sesquihydr (Protonix) 40 Mg Tab, 40 MG PO DAILY, #30 TAB 07/15/21 Rosuvastatin Calcium (Crestor) 10 Mg Tab, 10 MG PO DAILY, TAB 07/15/21 Ondansetron (Zofran) 4 Mg Tab, 8 MG PO, MG 07/15/21 Lisinopril (Lisinopril) 20 Mg Tab, 20 MG PO DAILY for 30 Days, MG 07/15/21 Sertraline Hcl (Sertraline Hcl) 50 Mg Tab, PO DAILY for 30 Days, MG 08/09/19 Buspirone Hcl (Buspirone Hcl) 5 Mg Tab, PO Q12HR for 30 Days, MG 08/09/19 Metformin Hydrochloride (Metformin Hcl) 500 Mg Tab, 1 TAB PO BID 12/05/12 Gemfibrozil (Gemfibrozil) 600 Mg Tab, 1 TAB PO BID 12/05/12 Simvastatin (Simvastatin) 20 Mg Tab, 1 TAB PO DAILY 12/05/12 Information Source: Patient Mode of Arrival: Ambulatory Severity: Mild Inability to void: None Timing: Days Duration: Since onset, Days Prehospital treatment: None Onset: Spontaneous History of: UTI, Kidney stone Location: None Modifying factors: None associated signs and symptoms: None Past Medical History PAST MEDICAL HISTORY: Anxiety, CAD, Cancer, CHF, CKF, Depression, High Lipids, HTN, Liver, NM Surgical History: Appendectomy, Tonsillectomy Family History Family History: Family hx of Cancer Social History Smoker: Non-Smoker Alcohol: Occasionally Drugs: Denies Drug Use Lives In: Home Constitutional: denies: chills, diaphoresis, fatigue, fever, malaise, sweats, weakness, others EENTM: denies: blurred vision, double vision, ear bleeding, ear discharge, ear drainage, ear pain, ear ringing, eye pain, eye redness, hearing loss, mouth pain, mouth swelling, nasal discharge, nose bleeding, nose congestion, nose pain, photophobia, tearing, throat pain, throat swelling, voice changes, others Respiratory: denies: cough, hemoptysis, orthopnea, SOB at rest, shortness of breath, SOB with excertion, stridor, wheezing, others Cardiovascular: denies: chest pain, dizzy spells, diaphoresis, Dyspnea on exertion, edema, irregular heart beat, left arm pain, lightheadedness, palpitations, PND, syncope, others Gastrointestinal: denies: abdomen distended, abdominal pain, blood streaked bowels, constipated, diarrhea, dysphagia, difficulty swallowing, hematemesis, melena, nausea, poor appetite, poor fluid intake, rectal bleeding, rectal pain, vomiting, others Genitourinary: denies: burning, dysuria, flank pain, frequency, hematuria, incontinence, penile discharge, penile sore, pain, testicle pain, testicle swelling, urgency, others Neurological: denies: dizziness, fainting, headache, left sided numbness, left sided weakness, numbness, paresthesia, pre-existing deficit, right sided numbness, right sided weakness, seizure, speech problems, tingling, tremors, weakness, others Musculoskeletal: denies: back pain, gout, joint pain, joint swelling, muscle pain, muscle stiffness, neck pain, others Integumetry: denies: bruises, change in color, change in hair/nails, dryness, laceration, lesions, lumps, rash, wounds, others Allergic/Immunocompromised: denies: Difficulty Healing, Frequent Infections, Hives, Itching, others Hematologic/Lymphatic: denies: anemia, blood clots, easy bleeding, easy bruising, swollen glands, others Endocrine: denies: excessive hunger, excessive sweating, excessive thirst, excessive urination, flushing, intolerance to cold, intolerance to heat, unexplained weight gain, unexplained weight loss, others Psychiatric: denies: anxiety, bipolar disorder, depression, hopeless, panic disorder, schizophrenia, sleepless, suicidal, others All Other Systems: Reviewed and Negative Physical Exam General Appearance: No Apparent Distress, Normal HEENT: Normal ENT Inspection, Pharynx Normal, TMs Normal Neck: Full Range of Motion, Non-Tender, Normal, Normal Inspection Respiratory: Chest Non-Tender, Lungs Clear, No Accessory Muscle Use, No Res piratory Distress, Normal Breath Sounds Cardiovascular: No Edema, No JVD, No Murmur, No Gallop, Normal Peripheral Pulses, Regular Rate/Rhythm Breast Exam: Deferred Gastrointestinal: No Organomegaly, Non Tender, No Pulsatile Mass, Normal Bowel Sounds, Soft Genitalia: Deferred Pelvic: Deferred Rectal: Deferred Extremities: No calf tenderness, Normal capillary refill, Normal inspection, Normal range of motion, Non-tender, No pedal edema Musculoskeletal : Apperance: Normal Neurologic: Alert, maintenance apprentice II-XII nml as Tested, No Motor Deficits, Normal Affect, Normal Mood, No Sensory Deficits Cerebellar Function: Normal Reflexes: Normal Skin: Dry, Normal Color, Warm Peripheral Pulses: 2+ carotid (R), 2+ carotid (L) Lymphatic: No Adenopathy Was a procedure done? Was a procedure done?: No Differential Diagnosis Kidney stone (Female): N/A Kidney stone (Male): Pancreatitis, Strain, Urinary obstruction, Urolithiasis, Urinary tract infection, Other X-Ray, Labs, Meds, VS Vital Signs Date Time Temp Pulse Resp B/P (MAP) Pulse Ox O2 Delivery O2 Flow Rate FiO2 05/09/25 09:57 97.6 73 16 143/75 94 97.6 Lab Test 05/09/25 10:15 Range/Units Urine Color Light-yellow Yellow Urine Clarity Clear Clear Urine pH 5.0 5.0-9.0 Urine Specific [place] 1.010 1.001-1.035 Urine Protein Negative Negative Urine Ketones Negative Negative Urine Blood Negative Negative /uL Urine Nitrite Negative Negative Urine Bilirubin Negative Negative Urine Urobilinogen Normal Negative mg/dL Urine Leukocyte Esterase Negative Negative /uL Urine RBC None seen 0 - 3 /hpf Urine Microscopic WBC < 1 0-3 /HPF Urine Squamous Epithelial Cells None seen <5 /hpf Urine Bacteria None seen None Seen /hpf Urine Glucose Normal Normal mg/dL X-Ray, Labs, Meds, VS Comment EXTERNAL MEDICAL RECORDS REVIEWED: [NONE] INDEPENDENT HISTORIANS: [NONE] SOCIAL DETERMINANTS OF HEALTH: [NONE] LABS ORDERED: UA REVIEWED AND INTERPRETED RESULTS: PATIENT'S URINE CAME BACK NORMAL, WITH NO SIGNS OF INFECTION OR KIDNEY STONE PRESENT. IMAGING ORDERED: NONE TREATMENTS ORDERED: NONE PROCEDURES PERFORMED: NONE CRITICAL CARE TIME: NONE I HAVE DISCUSSED THE PATIENT WITH THE ATTENDING PHYSICIAN DR. DENNISON AND SHE AGREES WITH THE PATIENT'S PLAN OF CARE AND DISPOSITION. BASED ON HISTORY OF PRESENT ILLNESS, AND PHYSICAL EXAM, PATIENT WILL BE DISCHARGED HOME. DISCUSSED PLAN FOR DISCHARGE HOME. SHARED DECISION MAKING: DISCUSSED WITH PATIENT THAT THEIR WORKUP WAS NORMAL. PATIENT INSTRUCTED TO FOLLOW UP WITH PRIMARY CARE PROVIDER IN 1-2 DAYS FOR RE- EVALUATION OF SYMPTOMS. PATIENT VERBALIZES UNDERSTANDING TO RETURN TO ED FOR NEW OR WORSENING SYMPTOMS OR IF FOLLOW UP WITH PCP CANNOT BE OBTAINED. PATIENT FEELS COMFORTABLE GOING HOME AT THIS TIME. ALL QUESTIONS ADDRESSED AT TIME OF DISCHARGE. Time of 1ST Reevaluation: 11:11 Reevaluation 1ST: Improved Patient Education/Counseling: Diagnosis, Treatment, Need For Follow Up Family Education/Counseling: Diagnosis, Treatment, No Family Present Medical Screening: No EMC Exist At This Time SEPSIS Sepsis Screen Date sepsis recognized/suspect: May 09, 2025 Time Sepsis recognized/suspect: 09 Recent Procedure: No On Antibiotic Therapy: Yes Respiratory Rate >20: No Heart Rate >90: No Temp<36 C (96.8 F) or >38.3 C: No SBP <90 or MAP <65 mmHG: No New Acute Mental Status Change: No Is the patient on CPAP, BIPAP,: No Vital Signs Date Time Temp Pulse Resp B/P (MAP) Pulse Ox O2 Delivery O2 Flow Rate FiO2 05/09/25 09:57 97.6 73 16 143/75 94 97.6 Departure 1 Departure Time of Disposition: 11:40 Impression: Primary Impression: Follow-up exam Additional Impression: Normal urine exam Disposition: HOME / SELF CARE / HOMELESS Condition: Stable Additional Instructions: FOLLOW-UP WITH PCP IN 1 TO 2 DAYS. RETURN TO ED FOR ANY NEW OR WORSENING SYMPTOMS. Discharged With: Self Critical Care Note Critical Care Time?: No Stability Stability form required: No Heart Score Heart Score: Heart Score Response (Comments) Value History N/A 0 EKG N/A 0 Age N/A 0 Risk Factors N/A 0 Troponin N/A 0 Total 0 I personally scribed for EMANUEL DIAS ([email or web address]) on 05/09/25 at 11:12. Electronically submitted by Brittany Beck ([employer]). I personally scribed for EMANUEL DIAS ([email or web address]) on 05/09/25 at 11:15. Electronically submitted by Brittany Beck ([employer]). I personally scribed for EMANUEL DIAS ([email or web address]) on 05/09/25 at 11:41. Electronically submitted by Brittany Beck ([employer]). EMANUEL DIAS May 09, 2025 11:12
[2025-05-09 11:32] VITALS: BP 143/75; PULSE 73; RESP 18; TEMP 98.6; O2SAT 96
[2025-05-09 11:36] LABS: Urine Protein, UAD Negative (Negative)
== END 2025-05-09 12:00 | disposition home or self-care (01) ==
LOC: ER 09:54
DX: Z13.89 Encounter for screening for other disorder (principal); Z09 Encounter for follow-up examination after completed treatment for conditions other than malignant neoplasm; I11.0 Hypertensive heart disease with heart failure; I50.9 Heart failure, unspecified; I25.10 Atherosclerotic heart disease of native coronary artery without angina pectoris; F41.9 Anxiety disorder, unspecified; F32.A Depression, unspecified; Z90.49 Acquired absence of other specified parts of digestive tract; Z90.89 Acquired absence of other organs; Z79.899 Other long term (current) drug therapy
CPT/HCPCS: 81001